=== PATIENT | female | born 1950 | race Caucasian/White ===

== ENCOUNTER → 2017-08-29 18:34 | Outpatient (CLI) | payer MEDICARE, OTHER, SELFPAY | PROVIDERS: Family Provider Family Medicine; PCP Family Medicine; Visit Provider Physician Assistant Surgical | DX: J02.9 Acute pharyngitis, unspecified (principal) | CPT/HCPCS: 87081 ==

== ENCOUNTER 2017-12-01 14:53 | Emergency (ER) | payer MEDICARE, OTHER, SELFPAY ==
[2017-12-01 14:54] VITALS: BP 164/82; PULSE 104; RESP 18; O2SAT 97; BMI 45.1
[2017-12-01 15:00] VITALS: BP 164/82; PULSE 102; RESP 16; O2SAT 96
--- NOTE | 2017-12-01 15:09 | EKG12_ITS ---
Test Reason : CP Blood Pressure : / mmHG Vent. Rate : 107 BPM Atrial Rate : 107 BPM P-R Int : 158 ms QRS Dur : 090 ms QT Int : 336 ms P-R-T Axes : 044 -12 037 degrees QTc Int : 448 ms Sinus tachycardia Otherwise normal ECG Confirmed by ASHISH WATSON, ASHLEY ([id number]), telegraph editor JUAN RAMON SOLIS ([id number] on 12/04/2017 2:45:00 PM Referred By: ISAIAS/CHARAN Confirmed By:ASHLEY HINOJOSA MD
--- NOTE | 2017-12-01 15:13 | RAD_ITS ---
STUDY: X-RAY CHEST REASON FOR EXAM: Female, 67 years old. Chest pain TECHNIQUE: Single AP portable view of the chest. COMPARISON: None. FINDINGS: The lungs are clear and expanded. There is no demonstrated pleural abnormality. Normal size heart. Normal mediastinum and cash. Normal visualized pulmonary arteries. Normal visualized aortic arch and descending thoracic aorta. There is a dextroscoliosis of the thoracic spine. There is degenerative osteoarthritis of the bilateral shoulders. There is no demonstrated abnormality of the visualized soft tissue structures of the upper abdomen. RAD/Chest 1 View (Portable) IMPRESSION: Degenerative changes, as described above. No demonstrated acute cardiopulmonary process. Electronically Signed: Braden Gallegos MD at 15:23 EDT Tel , Service support ,
[2017-12-01] MEDS: Aspirin 81 MG TAB.CHEW 324 MG PO (15:21)
--- NOTE | 2017-12-01 15:25 | ED.DCSUM_ITS ---
- ER Visit Summary Date of Service: 12/01/17 Chief Complaint: Chest pain History of Present Illness: The patient is a 67 F who presents with chest pain. She states it has been intermittent for the past week. She states it starts in the left side of her neck and radiates to the left side of her chest. It was dull and aching but now it sharp. It is worse with movement of the left arm. Denies nausea, vomiting or dyspnea. She states she had a stress test but it has been a while ago. She denies any diaphoresis. She does have multiple risk factors including hypertension, diabetes and high cholesterol. Physical Examination: Vital signs reviewed. HEENT exam unremarkable. Heart is regular rate and rhythm without murmurs. Lungs are clear to auscultation. She has tenderness of the left chest wall in the upper part. Abdomen is soft and nontender. Extremities reveal no edema. Peripheral pulses are equal. Skin exam normal. Neurologic exam normal. Test Results: EKG was sinus rhythm with a rate of 107. No ST changes. Chest x- ray feel degenerative changes. Laboratory studies reveal a white blood count of 11.3, hemoglobin 15.7. Glucose 216. Troponin normal. Emergency Department Course and Treatment: Patient was medicated with aspirin. Patient has reproducible pain in the left neck into the left chest. I feel that this is musculoskeletal. Patient does have a history of pleurisy states that this feels very similar. The patient is not short of breath. I have very low suspicion for pulmonary embolism. The patient takes tramadol at home only once a day. I told her to take NSAIDs and use heat and ice for this pain. She will follow-up with her primary care physician. Treatment Plan: [] Disposition: Discharge Impression: Chest wall pain This note was generated with [employer] software. It may contain incorrect words, spelling, and punctuation that were not noted in review of the chart prior to signing ED Disposition - Plan for ED Patient: Chief Complaint: Chest Pain Referrals: Alfredo Brooks [Primary Care Provider] -
[2017-12-01 15:27] LABS: Absolute Lymphocyte Count 2.59 X10^3/ul (0.83-4.51); Absolute Neutrophil Count 7.5 X10^3/uL (2.0-7.7); Basophil% 0.9 % (0-1); Eosinophil# 0.23 X10^3/uL; Hematocrit 44.3 % (37-47); Hemoglobin 15.7 g/dl (12.0-15.0); Lymphocyte # 2.59 X10^3/ul (4.0); Lymphocyte % 22.9 % (19-41); Mean Corp Hgb Conc 35.4 g/gl (32-36); Mean Corpuscular Hgb 35.4 pg (27.0-32.0); Mean Corpuscular Volume 99.8 fL (81-99); Mean Platelet Vol. 11.3 fl (6.2-12.0); Monocyte# 0.86 X10^3/uL; Monocyte% 7.6 % (0-10); Neutrophil # 7.49 X10^3/uL (2.7-7.7); Neutrophil % 66.2 % (47-70); POSITIVE COUNT NO; POSITIVE DIFFERENTIAL NO; POSITIVE MORPHOLOGY NO; Platelet Count 256 K/mm3 (150-450); RBC Distribution Width CV 12.1 % (11.6-14.6); Red Blood Count 4.44 M/mm3 (4.2-5.4); White Blood Count 11.3 K/mm3 (4.4-11.0)
[2017-12-01 15:36] LABS: Anion Gap 11 (5-15); BUN 18 mg/dL (7-18); Calcium,Total 9.4 mg/dL (8.5-10.1); Chloride 101 mmol/L (98-107); Creatinine, Serum 0.75 mg/dL (0.55-1.02); EST Glomerular Filtration Rate 82 mL/min (>60); Est Glom Filt Rate - Afr Amer 99 mL/min (>60); Estimated Creatinine Clearance 39.75 ml/min; Glucose 216 mg/dL (74-106); Potassium 4.1 mmol/L (3.5-5.1); Sodium Level 138 mmol/L (136-145)
--- NOTE | 2017-12-01 16:11 | ED.DEP ---
ED Disposition - Plan for ED Patient: Disposition: Home or Assisted Living Chief Complaint: Chest Pain Instructions: ED Chest Pain Pleurisy Referrals: Alfredo Brooks [Primary Care Provider] -
[2017-12-01 16:14] VITALS: BP 144/69; PULSE 97; RESP 18
[2017-12-01 16:18] VITALS: PULSE 97
== END 2017-12-01 16:20 | disposition home or self-care (01) ==
PROVIDERS: Emergency Provider Emergency Medicine; Family Provider Family Medicine; PCP Family Medicine
DX: R07.89 Other chest pain (principal); E11.9 Type 2 diabetes mellitus without complications; I10 Essential (primary) hypertension; E78.00 Pure hypercholesterolemia, unspecified; E03.9 Hypothyroidism, unspecified; Z79.82 Long term (current) use of aspirin; Z79.4 Long term (current) use of insulin; Z79.899 Other long term (current) drug therapy
CPT/HCPCS: 71045; 80048; 84484; 85025; 93005; 99285

== ENCOUNTER 2018-02-21 10:30 | Outpatient (RCR) | payer MEDICARE, OTHER, SELFPAY ==
--- NOTE | 2018-02-02 13:57 | HP.PTEVAL ---
Patient's Visit Information HERI TOUSSAINT is a 67 year old F referred to Physical Therapy by Marcelino Fitch with a diagnosis of Back pain and leg pain. Date of Evaluation: 02/02/18 Physical Therapist: Pebbles Ernst - Visit Plan Frequency: 2x /Week Duration: 6 Weeks Plan: 2X/ week for 4-6 weeks for centralization of symptoms using extension principle, core stability, LE strength, postural stength with HEP - Subjective Findings: Pt reports that her lower back has been bothering her and she has been having sharp pain in back of leg and sometimes back of the calf. This started about 6 months and it is getting a little better. She says bathtub and tries hip flexion exercises in the tub and helps. They did an MRI of back and they are going to do a block in the lower part of the back. The MRI showed that she has 2 bulging dics one in the lower and one in the upper. She can sit for 1/2 hour and then she has to move. She can not stand longer than 30 min and sitting relieves it and then she can get u up and go again. sit to stand able without using arms. Stairs are a little difficulty (hurts her back) and uses a railing. - Pain Back pain Pain Intensity (Out of 10): 7 R leg pain Pain Intensity (Out of 10): 5 - Objective Gait: walks with WBOS with shorter stride. Trunk AROM: Flexion 75%, ext 50%, SB B 75%,. LE MMT: hip flex B 4/5, knee ext B 4/5, knee flex R 4/5 and L 4-/5, hip abd R 4/5, hip and L 4-/5, Bridge 1/2 normal ROM. SLR + B for slight discomfort. Prone lying...increase center of back pain that went away after 1-2 min of lying there. CHARLI X 1 increase back pain, CHARLI X 10.... increased R sided back pain....laying prone X 1 min and pt had no back pain... CHARLI X 10 again and pt had no pain. SHowed pt how to sit with a towel roll behind back with good posture for home and she stated that it felt good. Patella DTR's 1+/3 B - Goals Goal 1:: I HEP Goal Time Frame: 4-6 Weeks Goal 2:: Sit with upright posture during treatment sessions Goal Time Frame: 4-6 Weeks Goal 3:: Decrease back and leg pain to 1/10 with ADL's Goal Time Frame: 4-6 Weeks Goal 4:: Increase LE strength to 4/5 B hip flex, abd, ext Goal Time Frame: 4-6 Weeks - Rehabilitation Potential Rehabilitation Potential: Good - Anticipated Interventions Patient/Client Instruction: Educate patient on: Plan of Care For the Purpose of:: To decrease pain, To decrease swelling/inflammation, To increase ROM, To improve nutrient delivery to tissue, To improve muscle performance and motor function, To improve ability to perform ADL's, To increase tolerance to activity/condition/position, To improve performance and independence with ADL's, To improve ability of physical actions for home/community/work/leisure, To improve gait and locomotor functions, To improve health of tissue Therapeutic Exercise to Include: Strength training, Postural training, Gait and locomotor training, Active ROM, Dynamic Lumbar Stabilization For the Purpose of:: To decrease pain, To increase ROM, To improve nutrient delivery to tissue, To improve muscle performance and motor function, To improve ability to perform ADL's, To increase tolerance to activity/condition/position, To improve performance and independence with ADL's, To improve health of tissue, To decrease soft tissue restriction, To increase flexibility/ROM Manual Therapy Techniques to Include: Mobilization, Soft tissue mobilization For the Purpose of:: To improve nutrient delivery to tissue, To improve muscle performance and motor function IF ES: Yes Cryotherapy (ice pack, ice massage): Yes Thermo therapy (hot pack): Yes For the Purpose of:: To decrease pain Thank you for the opportunity to evaluate your patient. For Medicare and Medicare HMO plans, please review the plan of care and approve it. It will need to be FAXED BACK to us at [phone] for Medicare purposes. For Medicare only, by signing this I certify the plan of care. Please let me know if there are questions or concerns regarding this plan of care. Physician Signature: Date:
--- NOTE | 2018-06-04 09:45 | HP.PTDCSUM ---
HP - PT D/C Summary It has been my pleasure to treat HERI TOUSSAINT under orders from Marcelino Fitch MD, for the diagnosis of Back pain and leg pain for a total of 5 visit(s). Discharge Date: 06/04/18 Please see the following information for a summary of their discharge status. - Subjective Subjective: Pt reports that she is a lot better. TOday is her last day of PT - Pain Back pain Pain Intensity (Out of 10): 0 R leg pain Pain Intensity (Out of 10): 0 - Objective Objective/Function: Pt had good understanding of HEP added today - Goals Goal 1:: I HEP Goal 2:: Sit with upright posture during treatment sessions Goal 3:: Decrease back and leg pain to 1/10 with ADL's Goal 4:: Increase LE strength to 4/5 B hip flex, abd, ext - Plan Plan: Pt will cont with HEP. DC PT - D/C Information Discharge Comments: DC to HEP If there are questions or concerns regarding this patient's physical therapy, please feel free to call me at [phone]. Thank you for the referral of this patient. Sincerely, Pebbles Ernst, MPT
== END 2018-02-21 19:00 | disposition home or self-care (01) ==
LOC: PT 10:30
PROVIDERS: Family Provider Family Medicine; PCP Family Medicine; Referring Provider Anesthesiology Pain Medicine; Visit Provider Anesthesiology Pain Medicine
DX: M54.9 Dorsalgia, unspecified (principal); M79.604 Pain in right leg
CPT/HCPCS: 97110; 97161

== ENCOUNTER 2018-04-25 12:48 | Emergency (ER) | payer MEDICARE, SELFPAY ==
[2018-04-25 12:48] VITALS: BP 159/82; PULSE 111; RESP 18; TEMP 36.3; O2SAT 94; BMI 45.1
--- NOTE | 2018-04-25 13:09 | CT_ITS ---
STUDY: CT ABDOMEN AND PELVIS WITH CONTRAST REASON FOR EXAM: Female, 68 years old. Diffuse abdominal pain. RADIATION DOSAGE (If Supplied By Facility): CTDIvol = ( 23.87 ) mGy, DLP = ( 1711.73 ) mGycm TECHNIQUE: Transaxial images were obtained from the dome of the diaphragm to the symphysis pubis without oral contrast. Isovue 300 100 IV was administered. Sagittal and coronal images were reconstructed. Individualized dose optimization techniques were used for this CT. COMPARISON: Comparison is made with prior study dated June 19, 2014. FINDINGS: The visualized lung bases are unremarkable. Coronary artery calcification. There is decreased attenuation of the liver consistent with steatosis. Mild hepatomegaly. There are surgical clips in the gallbladder fossa consistent with a prior cholecystectomy. Normal spleen. Calcification of the splenic artery. Normal pancreas. Normal bilateral adrenal glands. Normal right kidney. Normal left kidney. Normal visualized stomach. Normal small intestine. There are multiple colonic diverticula consistent with diverticulosis. There is non-visualization of the appendix. There is scattered atherosclerotic calcification of the abdominal aorta, without a demonstrated aneurysm. Normal inferior vena cava. Normal retroperitoneum. Normal urinary bladder. There is absence of the uterus consistent with a prior hysterectomy. Normal abdominal wall. There are diffuse degenerative changes of the visualized lumbar spine. CT/Abdomen/Pelvis W IV Cont ONLY IMPRESSION: Mild splenomegaly with diffuse fatty infiltration of the liver. Electronically Signed: Meño Mosley, at 15:32 EST , Service support ,
[2018-04-25] MEDS: 0.9% Normal Saline 1,000 ML 1000 ML IV (13:44)
[2018-04-25] MEDS: fentaNYL 100 MCG/2 ML Ampul 50 MCG IV (13:44)
[2018-04-25] MEDS: Ondansetron 4 MG/2 ML Vial IV (13:44)
[2018-04-25 14:18] LABS: Absolute Lymphocyte Count 2.35 X10^3/ul (0.83-4.51); Absolute Neutrophil Count 6.1 X10^3/uL (2.0-7.7); Basophil# 0.05 X10^3/uL; Basophil% 0.5 % (0-1); Eosinophils% 2.1 % (0-5); Hematocrit 46.5 % (37-47); Hemoglobin 15.4 g/dl (12.0-15.0); Lymphocyte # 2.35 X10^3/ul (4.0); Mean Corp Hgb Conc 33.1 g/gl (32-36); Mean Corpuscular Hgb 34.3 pg (27.0-32.0); Mean Corpuscular Volume 103.6 fL (81-99); Mean Platelet Vol. 11.7 fl (6.2-12.0); Monocyte# 0.69 X10^3/uL; Monocyte% 7.3 % (0-10); Neutrophil # 6.08 X10^3/uL (2.7-7.7); Neutrophil % 64.7 % (47-70); Platelet Count 254 K/mm3 (150-450); RBC Distribution Width CV 12.7 % (11.6-14.6); RBC Distribution Width SD 47.9 fl (35.1-43.9); Red Blood Count 4.49 M/mm3 (4.2-5.4); White Blood Count 9.4 K/mm3 (4.4-11.0)
[2018-04-25 14:19] LABS: POSITIVE COUNT NO; POSITIVE DIFFERENTIAL NO; POSITIVE MORPHOLOGY NO
[2018-04-25 14:32] LABS: Albumin, Serum 3.7 g/dL (3.2-5.0); BUN 19 mg/dL (7-18); Creatinine, Serum 0.79 mg/dL (0.55-1.02); EST Glomerular Filtration Rate 77 mL/min (>60); Est Glom Filt Rate - Afr Amer 93 mL/min (>60); Estimated Creatinine Clearance 39.21 ml/min; Glucose 205 mg/dL (74-106); Protein, Total 7.2 g/dL (6.4-8.2)
[2018-04-25 14:33] LABS: ALB/GLOB Ratio 1.1 RATIO (0.9-2.4); AST(SGOT) 28 U/L (15-37); Alanine Aminotransfer ALT/SGPT 33 U/L (13-56); Alkaline Phosphatase 70 U/L (45-117); Anion Gap 9 (5-15); Calcium,Total 9.3 mg/dL (8.5-10.1); Chloride 108 mmol/L (98-107); Globulin 3.5 g/dL (2.2-4.2); Lipase 197 U/L (73-393); Potassium 4.1 mmol/L (3.5-5.1); Sodium Level 140 mmol/L (136-145)
[2018-04-25 14:45] LABS: Bacteria 0 SEEN /hpf (None Seen); Mucous, Urine 0 SEEN /hpf (<or=2+); Red Blood Cells-Urine 0 SEEN /hpf (0-5)
[2018-04-25 14:47] LABS: Color, Urine Yellow (Yellow); Glucose, Dipstick 1000 mg/dl (Normal); Ketone-Dipstick 5 mg/dl (Negative); Leukocyte Esterase-Dipstick 100 /ul (Negative); Nitrite-Dipstick Negative (Negative); Occult Blood-Urine Negative /ul (Negative); Protein-Dipstick 15 mg/dl (Negative); Urine Bilirubin Dipstick Negative (Negative); Urine Clarity Clear (Clear); Urine Urobilinogen Normal (Normal)
[2018-04-25 14:53] LABS: Squamous Epithelial Cells - UA 0-5 SEEN /hpf (5-10); White Blood Cells 0-5 SEEN /hpf (0-5)
[2018-04-25 15:20] VITALS: BP 133/58; PULSE 94; RESP 16; O2SAT 92
--- NOTE | 2018-04-25 15:53 | ED.VISSUMM ---
- ER Visit Summary Date of Service: 04/25/18 Chief Complaint: Abdominal pain History of Present Illness: The patient is a 68 F with left-sided flank pain for 3 days. The pain feels like a stabbing pain and does not radiate. It is located at her left flank and left back. She does have increased frequency of stools but denies any bleeding. Denies any constipation. She does have nausea but no vomiting. She has a history of diverticulitis. Denies any history of kidney disease or stones. Denies any urinary symptoms. Physical Examination: Afebrile and vital signs unremarkable except for heart rate of 111. The patient is nontoxic and in no acute distress. Moist mucous membranes. No jaundice heart tachycardic but regular. Lungs clear. Abdomen is tender over the left flank. No guarding or rebound. Mild left CVA tenderness. Test Results: Hemoglobin 15.4, glucose 205. Hepatic panel and lipase normal. Urinalysis shows no evidence of bleeding or infection. CT abdomen showed mild splenomegaly and a fatty liver Emergency Department Course and Treatment: Patient received fluids, Zofran, and fentanyl while awaiting results. Her workup was reassuring. I do not know what is causing her pain. There is no sign of infection, GI pathology, or G U pathology. Patient will be treated with a course of tramadol. Zofran as needed. Follow-up with primary care for recheck. Return right away for any new or worsening issues. Treatment Plan: As above Disposition: Discharge Impression: 1. Left flank pain This note was generated with [employer] dictation software. It may contain incorrect words, spelling, and punctuation that were not noted in review of the chart prior to signing ED Disposition - Plan for ED Patient: Referrals: Alfredo Brooks [Primary Care Provider] -
--- NOTE | 2018-04-25 15:55 | ED.DEP ---
ED Disposition - Plan for ED Patient: Instructions: ED Flank Pain Uncertain Cause Prescriptions: traMADol [Ultram] 50 mg PO Q6H PRN PRN 3 Days #12 tab PRN Reason: Pain Ondansetron [Zofran Odt] 4 mg PO Q8H PRN PRN #10 tab PRN Reason: Nausea Referrals: Alfredo Brooks [Primary Care Provider] -
[2018-04-25 16:08] VITALS: BP 143/49; PULSE 73; RESP 15; O2SAT 96
== END 2018-04-25 16:09 | disposition home or self-care (01) ==
LOC: ED 13:36
PROVIDERS: Emergency Provider Emergency Medicine; Family Provider Family Medicine; PCP Family Medicine
DX: R10.9 Unspecified abdominal pain (principal); R11.0 Nausea; R19.7 Diarrhea, unspecified; R16.1 Splenomegaly, not elsewhere classified; K76.0 Fatty (change of) liver, not elsewhere classified
CPT/HCPCS: 74177; 80053; 81001; 83690; 85025; 96361; 96374; 96375; 99283; J7030; Q9967; A4216; J2405

== ENCOUNTER 2018-07-20 07:51 | Emergency (ER) | payer MEDICARE, SELFPAY ==
[2018-07-20 07:53] VITALS: BP 162/79; PULSE 119; RESP 20; TEMP 36.4; O2SAT 98; BMI 45.9
--- NOTE | 2018-07-20 08:10 | ED.DCSUM_ITS ---
- ER Visit Summary Date of Service: 07/20/18 Chief Complaint: Epistaxis History of Present Illness: The patient is a 68 F who presents with epistaxis that began yesterday. Patient was able to stop the bleeding last night. Patient states today she woke up and the bleeding was worse and she is unable to control her bleeding. Patient states she had 2 other episodes earlier this week which stopped. Patient denies any trauma or injury. Patient admits to some nausea but denies any vomiting. Patient is not on any anticoagulants. Physical Examination: Vital signs are stable except for an elevated blood pressure 162/79 and a tachycardia of 119. Patient is afebrile. Patient is in no acute distress. Oral mucosa is pink and moist. There is blood noted in the oropharynx. Nasal mucosa shows bleeding in bilateral nares. Heart was regular and tachycardic. Lungs are clear and equal bilaterally. Test Results: CBC shows slight leukocytosis of 11.4. Hemoglobin and hematocrit are normal. PT with INR and PTT were within normal limits. Emergency Department Course and Treatment: Cottonball soaked with Afrin and lidocaine were placed in bilateral nares. There is minimal improvement of the bleeding after this. Bilateral 7.5 cm anterior/posterior Rapid Rhino balloons were placed. Bleeding is improving after this. Patient still had some bleeding around the nasal packing. Packing was removed. Patient blew her nose and was able to blow out some clots from the left nares. Bilateral 7.5 cm anterior/posterior rapid Rhino balloons were replaced. Patient states that the bleeding is improving but there is still some oozing. Patient felt like her blood pressure was dropping. BGT was obtained and was 333. Patient was given 15 units of Humalog. An episode that balloon was applied to the left nares. Jonnie philip was still having some oozing from the right nares. Patient was unable to tolerate any further packing in the right nares. Since there is no ENT on-call here today, patient will be transferred for ENT evaluation. Patient requested to go to [facility]. Patient will be transferred to the emergency department there. Patient and family understood and were agreeable with the plan. All questions were answered. Disposition: Transfer to [facility] Impression: 1. Epistaxis This note was generated with [employer] dictation software. It may contain incorrect words, spelling, and punctuation that were not noted in review of the chart prior to signing ED Disposition - Plan for ED Patient: Disposition: [facility] Diagnosis: Epistaxis Instructions: Nosebleed Referrals: Alfredo Brooks [Primary Care Provider] -
[2018-07-20 08:51] LABS: Absolute Lymphocyte Count 2.04 X10^3/ul (0.83-4.51); Absolute Neutrophil Count 8.4 X10^3/uL (2.0-7.7); Basophil# 0.06 X10^3/uL; Basophil% 0.5 % (0-1); Eosinophil# 0.18 X10^3/uL; Eosinophils% 1.6 % (0-5); Hematocrit 43.7 % (37-47); Hemoglobin 14.9 g/dl (12.0-15.0); Lymphocyte # 2.04 X10^3/ul (4.0); Mean Corp Hgb Conc 34.1 g/gl (32-36); Mean Corpuscular Hgb 34.4 pg (27.0-32.0); Mean Corpuscular Volume 100.9 fL (81-99); Mean Platelet Vol. 11.6 fl (6.2-12.0); Monocyte# 0.64 X10^3/uL; Monocyte% 5.6 % (0-10); Neutrophil # 8.38 X10^3/uL (2.7-7.7); Neutrophil % 73.9 % (47-70); Platelet Count 245 K/mm3 (150-450); RBC Distribution Width CV 13.3 % (11.6-14.6); RBC Distribution Width SD 48.8 fl (35.1-43.9); Red Blood Count 4.33 M/mm3 (4.2-5.4); White Blood Count 11.4 K/mm3 (4.4-11.0)
[2018-07-20 08:52] LABS: POSITIVE COUNT NO; POSITIVE DIFFERENTIAL NO; POSITIVE MORPHOLOGY NO
[2018-07-20 09:02] LABS: International Normalized Ratio 1.1; Partial Thromboplast Time 29.6 Seconds (24.1-36.2); Prothrombin Time (Protime)PT. 14.1 SECONDS (11.7-14.9)
[2018-07-20] MEDS: Lidocaine 4% 50 ML Bottle TOPICAL (09:20)
[2018-07-20] MEDS: Oxymetazoline 0.05% 1 SPRAY SPRAY.BTL NASAL (09:21)
[2018-07-20 11:27] VITALS: BP 149/68; PULSE 117; RESP 18; O2SAT 93
[2018-07-20 11:40] LABS: Bedside Glucose 330 mg/dL (70-110)
[2018-07-20] MEDS: Insulin Lispro 100 UNIT/ML INSULN.PEN 15 UNIT SC (12:36)
[2018-07-20 13:45] VITALS: BP 143/63; PULSE 120; RESP 18; O2SAT 92
[2018-07-20 14:00] LABS: Bedside Glucose 300 mg/dL (70-110)
[2018-07-20 14:30] VITALS: PULSE 120; RESP 18
== END 2018-07-20 14:31 | disposition short-term general hospital (02) ==
PROVIDERS: Emergency Provider Emergency Medicine; Family Provider Family Medicine; PCP Family Medicine
DX: R04.0 Epistaxis (principal); J02.9 Acute pharyngitis, unspecified; R51 Headache; R11.0 Nausea; E11.9 Type 2 diabetes mellitus without complications; Z79.4 Long term (current) use of insulin; Z79.84 Long term (current) use of oral hypoglycemic drugs; Z79.82 Long term (current) use of aspirin; Z79.899 Other long term (current) drug therapy
CPT/HCPCS: 30903; 30905; 82962; 85025; 85610; 85730; 96372; 99285; A4216

== ENCOUNTER → 2019-02-12 15:01 | Outpatient (CLI) | payer MEDICARE, SELFPAY ==
[2019-02-12 17:53] LABS: CRP 3.19 mg/L (0.0-3.0)
[2019-02-14 16:07] LABS: Endomysial Antibody IgA Negative (Negative)
[2019-02-15 16:40] LABS: Immunoglobulin A 307 mg/dL (87-352); t-Transglutaminase IgA <2 U/mL (0-3)
== END ==
PROVIDERS: Family Provider Family Medicine; PCP Family Medicine; Referring Provider Internal Medicine Gastroenterology; Visit Provider Internal Medicine Gastroenterology
DX: R19.7 Diarrhea, unspecified (principal)
CPT/HCPCS: 36415; 82784; 83516; 86140; 86255

== ENCOUNTER 2021-07-01 18:03 | Emergency (ER) | payer MEDICARE, SELFPAY ==
[2021-07-01 18:04] VITALS: BP 176/78; PULSE 96; RESP 15; TEMP 36.2; O2SAT 96; BMI 47.5
[2021-07-01 18:06] VITALS: BP 176/78; PULSE 96; RESP 15; TEMP 36.2; O2SAT 96
[2021-07-01 19:17] VITALS: BP 162/77; PULSE 89; RESP 18; O2SAT 98
--- NOTE | 2021-07-01 19:55 | EKG12_ITS ---
Test Reason : CP Blood Pressure : / mmHG Vent. Rate : 087 BPM Atrial Rate : 087 BPM P-R Int : 158 ms QRS Dur : 092 ms QT Int : 374 ms P-R-T Axes : 036 -16 050 degrees QTc Int : 450 ms Normal sinus rhythm Nonspecific T wave abnormality Abnormal ECG Confirmed by ASHISH WATSON, SAHLEY ([id number]), supervising film or videotape editor PATRICE JARVIS ([id number]) on 07/05/2021 1:36:50 PM Referred By: Confirmed By:ASHLEY HINOJOSA MD
--- NOTE | 2021-07-01 19:56 | EDS_ITS ---
HPI History of Present Illness Chief Complaint: Chest Pain Informant: patient Narrative Narrative: [id number] female presenting to the emergency room for evaluation of chest pain. Patient states that she was out holding in the garden yesterday when she got a sudden sharp pain in the center of her chest that radiated to her left shoulder. She stopped which she is doing and went and sat down with her . Never really went away and today it feels more of the ache in the center of her chest. She states that when she gets up and moves it makes it worse. She notes a history of diabetes and hypertension and hypercholesterolemia. She denies any known heart disease [facility] Medical History Chest pain Diabetes Hypertension Home Medications amlodipine 10 mg PO DAILY 04/21/16 [History Last Taken Unknown] hydrochlorothiazide 12.5 mg PO DAILY 04/21/16 [History Last Taken Unknown] levothyroxine 112 mcg PO DAILY 04/21/16 [History Last Taken Unknown] lisinopril 10 mg PO DAILY 04/21/16 [History Last Taken Unknown] metformin 1,000 mg PO BIDCM 04/21/16 [History Last Taken Unknown] omega-3 fatty acids-fish oil 1 ea PO DAILY 04/21/16 [History Last Taken Unknown] simvastatin 10 mg PO QHS 04/21/16 [History Last Taken Unknown] aspirin 81 mg tablet,delayed release 81 mg PO QDAY 08/29/17 [History Last Taken Unknown] ondansetron 4 mg PO Q8H PRN PRN #10 tab 04/25/18 [Rx Last Taken Unknown] ergocalciferol (vitamin D2) [Vitamin D] 5,000 iu PO DAILY 07/20/18 [History Last Taken Unknown] gabapentin 100 mg PO TIDCM 07/20/18 [History Last Taken Unknown] insulin glargine U-300 conc [Nata Brown] 72 unit SQ DAILY 07/20/18 [History Last Taken Unknown] insulin regular human [Novolin R] 26 unit SUBCUT BID 07/20/18 [History Last Taken Unknown] insulin regular human [Novolin R] 28 unit SUBCUT DINNER 07/20/18 [History Last Taken Unknown] loratadine [Claritin] 10 mg PO DAILY 07/20/18 [History Last Taken Unknown] Allergy/AdvReac Type Severity Reaction Status Date / Time amoxicillin trihydrate Allergy Rash Verified 07/01/21 18:06 [From Augmentin] codeine Allergy Rash Verified 07/01/21 18:06 Penicillins Allergy Rash Verified 07/01/21 18:06 potassium clavulanate Allergy Rash Verified 07/01/21 18:06 [From Augmentin] Sulfa (Sulfonamide Allergy Rash Verified 07/01/21 18:06 Antibiotics) Family History (Updated 08/29/17 @ 12:27 by Nayeli Painter) Other Cancer Diabetes Surgical History Hx of cholecystectomy Hx of hysterectomy Hx of thyroidectomy Social History (Updated 07/01/21 @ 19:[address] Sim Iverson DO) current gender identity: female Smoking Status: Never smoker ROS ROS ED Constitutional Constitutional ED: Denies chills, fever(s) or weight loss Eyes Eyes: Denies change in vision or diplopia ENT ENT ED: Denies ear pain, rhinorrhea or sore throat Cardiovascular Cardiovascular: Reports chest pain; Denies orthopnea, palpitations or racing heartbeat Respiratory/Chest Respiratory/Chest: Denies cough, dyspnea or orthopnea Gastrointestinal Gastrointestinal: Denies abdominal pain, diarrhea, nausea or vomiting Genitourinary Genitourinary ED: Denies dysuria, hematuria or urinary frequency Musculoskeletal Musculoskeletal: Denies arthralgias or myalgias Integumentary Denies abscess or rash Neurologic Neurologic: Denies headache(s) or weakness Psychiatric Psychiatric: Denies anxiety, depression, suicidal ideation or suicidal thoughts Endocrine Endocrinology: Denies polydipsia, polyphagia or polyuria Allergic/Immunologic Allergic/Immunologic ED: Denies mouth swelling, tongue swelling or urticaria EXAM Physical Exam Const Vital Signs: 07/01/21 18:04 07/01/21 18:06 07/01/21 19:04 Temperature 97.2 F L 97.2 F L Temperature Source Temporal Temporal Pulse Rate 96 96 Respiratory Rate 15 15 Respiratory Effort Normal Non-Labored Blood Pressure 176/78 H 176/78 H Blood Pressure Mean 110 110 Pulse Ox 96 96 Oxygen Delivery Method Room Air Room Air 07/01/21 19:17 07/01/21 20:38 07/01/21 20:44 Temperature Temperature Source Pulse Rate 89 89 86 Respiratory Rate 18 27 H 24 H Respiratory Effort Blood Pressure 162/77 H 153/68 H 153/68 H Blood Pressure Mean 105 153/68 96 Pulse Ox 98 95 94 Oxygen Delivery Method Room Air Room Air Room Air Positive well nourished, well developed and obese General Appearance ED: well developed Nutritional Appearance: obese HEENT Reports normocephalic, head/scalp atraumatic and moist mucous membranes; Denies TM's clear normocephalic and atraumatic Tympanic Membrane ED: Negative for TM's clear Eyes PERRL and EOMs intact bilaterally Neck no lymphadenopathy, supple and no JVD Chest Wall Chest: tenderness costal cartilage Resp normal respiratory effort and clear to auscultation bilaterally Cardio regular rate, regular rhythm and no murmurs GI normal to inspection, nondistended, normoactive bowel sounds and non-tender Palpation: soft Back/Spine no CVA tenderness and normal ROM Extremity normal to inspection General Extremety ED: Negative for edema General Extremity: Negative for edema Neuro oriented x3 and CN's II-XII intact bilaterally Sensorium / Orientation: alert Motor Exam: strength 5/5 throughout Psych mental status grossly normal Mood & Affect: Negative for depressed or tearful Skin no rashes or lesions noted and no wounds MDM MDM MDM Narrative Medical decision making narrative: CBC showed a white count 7.9 with a hemoglobin 14.7. Troponin is 8 and represents greater than 8 hours of constant symptoms. BMP is otherwise demonstrating a glucose of 239. My interpretation of the chest x-ray is no acute process. She is had no events on the monitor. At this point I do not think that the patient symptoms are consistent with ACS. I do not believe that she has a DVT or PE. Her pain is reproducible. Lab Data Attestation: I reviewed the patient's lab results. Labs: Laboratory Results - last 24 hr 07/01/21 07/01/21 19:00 19:00 WBC 7.9 RBC 4.13 L Hgb 14.7 Hct 42.8 MCV 103.6 H MCH 35.6 H MCHC 34.3 RDW Std Deviation 46.5 H RDW Coeff of Joyce 12.3 Plt Count 233 MPV 12.1 H Immature Gran % (Auto) 0.500 Neut % (Auto) 59.6 Lymph % (Auto) 28.0 Harvey % (Auto) 9.0 Eos % (Auto) 2.0 Baso % (Auto) 0.9 Absolute Neuts (auto) 4.7 Absolute Lymphs (auto) 2.22 Nucleated RBC % 0 Sodium 138 Potassium 4.3 Chloride 105 Carbon Dioxide 25.0 Anion Gap 8 BUN 16 Creatinine 0.79 Estim Creat Clear Calc 37.60 Est GFR (MDRD) Af Amer 93 Est GFR (MDRD) Non-Af 77 BUN/Creatinine Ratio 20.3 H Glucose 239 H Calcium 9.7 Troponin I High Sens 8 EKG Initial EKG: Attestation: I personally reviewed and interpreted this EKG as follows: Comments: Normal sinus rhythm with a ventricular rate of 87 bpm. Discharge Plan Triage Chief Complaint: Chest Pain ED Provider: Sim Iverson Dx/Rx/DC Orders Prescriptions: No Action aspirin [Adult Low Dose Aspirin] 81 mg tablet,delayed release (DR/EC) 81 mg PO QDAY RF: 0 simvastatin 10 MG tablet 10 mg PO QHS RF: 0 levothyroxine 100 MCG tablet 112 mcg PO DAILY RF: 0 amlodipine 10 MG tablet 10 mg PO DAILY RF: 0 metformin 1,000 MG tablet 1,000 mg PO BIDCM RF: 0 lisinopril 10 MG tablet 10 mg PO DAILY RF: 0 hydrochlorothiazide 25 MG tablet 12.5 mg PO DAILY RF: 0 omega-3 fatty acids-fish oil 1 EACH capsule 1 ea PO DAILY RF: 0 ondansetron 4 MG tablet 4 mg PO Q8H PRN PRN (Reason: Nausea) Qty: 10 RF: 0 gabapentin 100 MG capsule 100 mg PO TIDCM RF: 0 ergocalciferol (vitamin D2) [Vitamin D2] 50,000 UNIT capsule 5,000 iu PO DAILY RF: 0 loratadine [Allergy Relief (loratadine)] 10 MG tablet 10 mg PO DAILY RF: 0 insulin regular human [Novolin R Regular U-100 Insuln] 100 UNIT/ML Ml 26 unit subcut BID RF: 0 insulin regular human [Novolin R Regular U-100 Insuln] 100 UNIT/ML Ml 28 unit subcut DINNER RF: 0 insulin glargine U-300 conc [Toujeo SoloStar U-300 Insulin] 300 UNIT/ML Insuln.Pen 72 unit SQ DAILY RF: 0 Primary Care Provider: Alfredo Brooks
[2021-07-01 20:14] LABS: Absolute Lymphocyte Count 2.22 X10^3/uL (0.83-4.51); Absolute Neutrophil Count 4.7 X10^3/uL (2.0-7.7); Basophil# 0.07 X10^3/uL; Basophil% 0.9 % (0-1); Eosinophil# 0.16 X10^3/uL; Hematocrit 42.8 % (37-47); Hemoglobin 14.7 g/dL (12.0-15.0); Lymphocyte # 2.22 X10^3/ul (0.83-4.51); Mean Corp Hgb Conc 34.3 g/dL (32-36); Mean Corpuscular Hgb 35.6 pg (27.0-32.0); Mean Corpuscular Volume 103.6 fL (81-99); Mean Platelet Vol. 12.1 fl (6.2-12.0); Monocyte# 0.71 X10^3/uL; NRBC Flagged by Analyzer 0 % (0-5); Neutrophil # 4.72 X10^3/uL (2.7-7.7); Neutrophil % 59.6 % (47-70); Platelet Count 233 K/mm3 (150-450); RBC Distribution Width CV 12.3 % (11.6-14.6); RBC Distribution Width SD 46.5 fl (35.1-43.9); Red Blood Count 4.13 M/mm3 (4.2-5.4); White Blood Count 7.9 K/mm3 (4.4-11.0)
--- NOTE | 2021-07-01 20:21 | RAD_ITS ---
STUDY: XR Chest 1 View 07/01/2021 8:19 PM REASON FOR EXAM: Female, 71 years old. chest pain COMPARISON: 12/01/2017 TECHNIQUE: XR Chest 1 View FINDINGS: There is no demonstrated pleural abnormality. Normal heart size. Normal mediastinum. Normal cash. Prominent appearing increased interstitial lung markings. Normal visualized pulmonary arteries. There is atherosclerotic calcification of the aortic arch with tortuosity. There are diffuse degenerative changes of the visualized thoracic spine. There is degenerative osteoarthritis of the bilateral shoulders. There is no demonstrated abnormality of the visualized soft tissue structures of the upper abdomen. RAD/Chest 1 View (Portable) IMPRESSION: There are no acute findings. Electronically Signed: Jarad Adair MD at 20:38 EDT ,
[2021-07-01 20:37] LABS: Anion Gap 8 (5-15); BUN 16 mg/dL (7-18); BUN/Creat Ratio 20.3 RATIO (10-20); Calcium,Total 9.7 mg/dL (8.5-10.1); Chloride 105 mmol/L (98-107); Creatinine, Serum 0.79 mg/dL (0.55-1.02); EST Glomerular Filtration Rate 77 mL/min (>60); Est Glom Filt Rate - Afr Amer 93 mL/min (>60); Glucose 239 mg/dL (74-106); Potassium 4.3 mmol/L (3.5-5.1); Sodium Level 138 mmol/L (136-145); Troponin-I HS (w/2H Reflex) 8 pg/mL (3.0-54.0)
[2021-07-01 20:38] VITALS: BP 153/68; PULSE 89; RESP 27; O2SAT 95
[2021-07-01] MEDS: Aspirin 81 MG TAB.CHEW 324 MG PO (20:41)
[2021-07-01 20:44] VITALS: BP 153/68; PULSE 86; RESP 24; O2SAT 94
[2021-07-01 21:46] VITALS: BP 156/74; PULSE 86; RESP 16; O2SAT 96
[2021-07-01 22:12] LABS: Reflex Troponin-HS? (from REC) Y
== END 2021-07-01 21:47 | disposition home or self-care (01) ==
PROVIDERS: Emergency Provider Emergency Medicine; PCP Family Medicine; Visit Provider Emergency Medicine
DX: R07.9 Chest pain, unspecified (principal); Z68.42 Body mass index [BMI] 45.0-49.9, adult; E11.9 Type 2 diabetes mellitus without complications; Z79.4 Long term (current) use of insulin; I10 Essential (primary) hypertension; E78.00 Pure hypercholesterolemia, unspecified; Z79.82 Long term (current) use of aspirin; Z79.899 Other long term (current) drug therapy; E66.9 Obesity, unspecified
CPT/HCPCS: 71045; 80048; 84484; 85025; 93005; 99283; A4216

== ENCOUNTER → 2021-07-28 | Outpatient (CLI) | payer MEDICARE, OTHER, SELFPAY ==
--- NOTE | 2021-07-28 11:47 | STRESSREP_ITS ---
Stress Test Report Pharmacologic myocardial perfusion stress test. 71-year-old lady with a history of chest pain. Stress protocol: Resting KG demonstrates normal sinus rhythm with a rate of 85 bpm normal intervals are noted resting blood pressure is 160/72 mmHg. 0.4 mg of regadenoson was infused per usual protocol followed by rapid intravenous saline flush injection continuous EKG monitoring was performed. The patient maintained sinus rhythm throughout the recording. The maximum heart rate was 98 bpm which was 65% of max impacted heart rate the maximum workload was 1 metabolic equivalent. At rest there were no ST or T wave changes noted to suggest abnormal flow reserve and at peak infusion nonspecific ST changes were noted with did not meet the criteria for ischemia. Myocardial perfusion protocol. 14.9 mCi of technetium 99m sestamibi was injected at rest. 0.4 mg of regadenoson was infused per usual protocol. At peak infusion 44.9 mCi of radha hnetium 99m sestamibi was injected stress images were obtained stress and rest images were reconstructed and compared in the short axis vertical long and horizontal long axis. Gated images were also obtained. Perfusion SPECT analysis: Review of the stress images demonstrate normal uptake of tracer noted in all areas of the myocardium. The resting images similar demonstrate normal uptake of tracer noted in all areas of the myocardium. No areas of reversibility are noted suggest ischemia. Gated SPECT analysis: Gated ejection fraction is 59% . Conclusion: Normal pharmacologic myocardial perfusion stress test. Preserved ejection fraction
== END | disposition home or self-care (01) ==
LOC: CVS 06:16
PROVIDERS: PCP Family Medicine; Visit Provider Family Medicine
DX: R06.00 Dyspnea, unspecified (principal)
CPT/HCPCS: 78452; 93017; A9500; A4216; J2785

== ENCOUNTER 2023-05-02 11:11 | Emergency (ER) | payer MEDICARE, OTHER, SELFPAY ==
[2023-05-02 11:12] VITALS: BP 124/58; PULSE 88; RESP 16; TEMP 36.6; O2SAT 95; BMI 41.1
[2023-05-02 11:42] LABS: Mucous, Urine 0 SEEN /hpf (<or=2+); Red Blood Cells-Urine 0 SEEN /hpf (0-5); White Blood Cells 0 SEEN /hpf (0-5)
[2023-05-02 11:48] LABS: Color, Urine Yellow (Yellow); Glucose, Dipstick Normal (Normal); Ketone-Dipstick Negative (Negative); Leukocyte Esterase-Dipstick Negative /ul (Negative); Nitrite-Dipstick Negative (Negative); Occult Blood-Urine Negative /ul (Negative); Protein-Dipstick Negative (Negative); Urine Bilirubin Dipstick Negative (Negative); Urine Clarity Sl. Cloudy (Clear); Urine Urobilinogen Normal (Normal)
[2023-05-02 11:55] LABS: Bacteria 3+ /hpf (None Seen); Squamous Epithelial Cells - UA 25-50 SEEN /hpf (5-10)
--- NOTE | 2023-05-02 12:10 | CT_ITS ---
EXAM: CT ABDOMEN AND PELVIS WITHOUT INTRAVENOUS CONTRAST CLINICAL INDICATION: right flank pain TECHNIQUE: Helically acquired images were obtained of the abdomen and pelvis without intravenous contrast. This CT exam was performed using one or more of the following dose reduction techniques: automated exposure control, adjustment of the mA and/or kV according to patient size, and/or use of iterative reconstruction technique. RADIATION DOSE: CTDIvol = 20.28 mGy, DLP = 1023.51 mGy-cm COMPARISON: CT abdomen and pelvis with IV contrast 04/25/2018. FINDINGS: LOWER THORAX: Unremarkable. Lung bases are clear. No cardiomegaly. No significant pericardial effusion. ABDOMEN: LIVER: Heterogeneous low attenuations in segment 4, segment 5, segment 8, segment 7 and segment 6 of the liver parenchyma are new findings. There is mild nodularity of the liver surface. GALLBLADDER AND BILE DUCTS: Postsurgical absence of the gallbladder. No intra- or extrahepatic biliary ductal dilation. PANCREAS: Unremarkable. No focal cystic mass. SPLEEN: Unremarkable. Normal size without focal cystic or solid mass. ADRENALS: Unremarkable. No nodules. KIDNEYS AND URETERS: 4 mm nonobstructing stone in the right upper renal infundibulum. No right hydronephrosis. 10 mm linear nonobstructing stone in the left lower renal infundibula. No left hydronephrosis. STOMACH AND BOWEL: Few diverticula in the sigmoid colon without diverticulitis. No stomach or bowel distention. PELVIS: APPENDIX: The appendix is not visualized but there are no secondary signs of acute appendicitis. BLADDER: Unremarkable. REPRODUCTIVE: Unremarkable as visualized. No mass. ABDOMEN and PELVIS: INTRAPERITONEAL SPACE: Unremarkable. No ascites or other fluid collection. No free air. BONES/JOINTS: 6 lumbar type vertebral bodies. 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 Grade 1 degenerative anterolisthesis of L4 on L5 is unchanged. Less than grade 1 degenerative anterolisthesis of L4 on L5 has increased slightly. Calcified posterior bulging annulus at L4-L5 disc space level is unchanged. No lytic or blastic lesions. SOFT TISSUES: Unremarkable. No discrete abdominal or pelvic wall hernia. VASCULATURE: Unremarkable. Abdominal aorta is non-dilated. LYMPH NODES: Unremarkable. No enlarged lymph nodes. CT/Abdomen/Pelvis without Cont IMPRESSION: 1. Heterogeneous low-attenuation lesions in segment 4, segment 5, segment 8, segment 7 and segment 6 of the liver parenchyma are new findings. I am uncertain if these are asymmetric fatty infiltrations or liver masses. Three-phase contrast CT of the liver will be very helpful for further evaluation. 2. Sigmoid diverticulosis without diverticulitis. 3. 4 mm nonobstructing stone in the right upper renal infundibulum and 10 mm linear nonobstructing stone in the left lower renal infundibulum. No bilateral hydronephrosis. 4. Nonvisualization of the appendix but no secondary signs of acute appendicitis. 5. 6 lumbar type vertebral bodies. 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 Thoracic spine radiographs will help confirm/clarify if desired. 6. Mild increase in degenerative anterolisthesis of L4 on L5 but the partially calcified posterior bulging annulus at L4-L5 disc space level is unchanged. 7. Grade 1 degenerative anterolisthesis of L5 on S1 is unchanged. Electronically Signed: Harlan Diaz MD at 13:28 EST ,
--- NOTE | 2023-05-02 12:11 | EDS_ITS ---
HPI History of Present Illness Chief Complaint: Complaint Informant: patient Narrative Narrative: Patient presents secondary to right flank pain. She points to the right mid back and states she has pain that is intermittent and sharp which wraps around to her mid abdomen, right groin, and somewhat down her leg. Pain has been intermittent for the past several days. She called her PCP who was booked so she came in here to be evaluated. She denies fever or chills. She denies dysuria, but states sometimes when she empties her bladder she will only get a small amount out. She also feels constipated and has not had a bowel movement 2 days. [facility] Medical History Chest pain Diabetes Hypertension Home Medications amlodipine 10 mg tablet 10 mg PO DAILY 04/21/16 [History Last Taken Unknown] hydrochlorothiazide 25 mg tablet 12.5 mg PO DAILY 04/21/16 [History Last Taken Unknown] levothyroxine 100 mcg tablet 112 mcg PO DAILY 04/21/16 [History Last Taken Unknown] lisinopril 10 mg tablet 10 mg PO DAILY 04/21/16 [History Last Taken Unknown] metformin 1,000 mg tablet 1,000 mg PO BIDCM 04/21/16 [History Last Taken Unknown] omega-3 fatty acids-fish oil 340 mg-1,000 mg capsule 1 ea PO DAILY 04/21/16 [History Last Taken Unknown] simvastatin 10 mg tablet 10 mg PO QHS 04/21/16 [History Last Taken Unknown] aspirin 81 mg tablet,delayed release (Adult Low Dose Aspirin) 81 mg PO QDAY 08/29/17 [History Last Taken Unknown] ondansetron 4 mg disintegrating tablet 4 mg PO Q8H PRN PRN Nausea #10 tabs 04/25/18 [Rx Last Taken Unknown] ergocalciferol (vitamin D2) 1,250 mcg (50,000 unit) capsule (Vitamin D2) 5,000 iu PO DAILY 07/20/18 [History Last Taken Unknown] gabapentin 100 mg capsule 100 mg PO TIDCM 07/20/18 [History Last Taken Unknown] insulin glargine U-300 conc 300 unit/mL (1.5 mL) subcutaneous pen ([place] SoloStar U-300 Insulin) 72 unit SQ DAILY 07/20/18 [History Last Taken Unknown] insulin regular human 100 unit/mL injection solution (Novolin R Regular U-100 Insulin) 26 unit subcut BID 07/20/18 [History Last Taken Unknown] insulin regular human 100 unit/mL injection solution (Novolin R Regular U-100 Insulin) 28 unit subcut DINNER 07/20/18 [History Last Taken Unknown] loratadine 10 mg tablet (Allergy Relief (loratadine)) 10 mg PO DAILY 07/20/18 [History Last Taken Unknown] oxycodone-acetaminophen 5 mg-325 mg tablet (Percocet) 1 tab PO Q8H PRN pain 3 days #10 tabs 05/02/23 [Rx Last Taken Unknown] Allergy/AdvReac Type Severity Reaction Status Date / Time amoxicillin trihydrate Allergy Rash Verified 05/02/23 11:14 [From Augmentin] codeine Allergy Rash Verified 05/02/23 11:14 niacin Allergy Rash Verified 05/02/23 11:18 Penicillins Allergy Rash Verified 05/02/23 11:14 potassium clavulanate Allergy Rash Verified 05/02/23 11:14 [From Augmentin] Sulfa (Sulfonamide Allergy Rash Verified 05/02/23 11:14 Antibiotics) lovastatin AdvReac MUSCLE PAIN Verified 05/02/23 11:18 Family History Other Cancer Diabetes Surgical History Hx of cholecystectomy Hx of hysterectomy Hx of thyroidectomy Social History Smoking Status: Never smoker ROS ROS ED Constitutional Constitutional ED: Denies chills or fever(s) Eyes Eyes: Denies discharge from eye(s) ENT ENT ED: Denies discharge from eye(s), rhinorrhea or sore throat Cardiovascular Cardiovascular: Denies chest pain or palpitations Respiratory/Chest Respiratory/Chest: Denies cough or dyspnea Gastrointestinal Gastrointestinal: Reports abdominal pain; Denies diarrhea, nausea or vomiting Genitourinary Genitourinary ED: Reports difficulty urinating; Denies dysuria or hematuria Musculoskeletal Musculoskeletal: Reports back pain; Denies extremity pain Integumentary Denies Abrasions or rash Neurologic Neurologic: Denies headache(s) or weakness Psychiatric Psychiatric: Denies anxiety or depression Allergic/Immunologic Allergic/Immunologic ED: Denies lip swelling or urticaria EXAM Physical Exam Const Vital Signs: 05/02/23 11:12 Temperature 97.8 F Temperature Source Temporal Pulse Rate 88 Respiratory Rate 16 Blood Pressure 124/58 H Blood Pressure Mean 80 Pulse Ox 95 Oxygen Delivery Method Room Air Positive well nourished and well developed General Appearance ED: well developed HEENT Reports moist mucous membranes Eyes EOMs intact bilaterally Chest Wall inspection of chest normal and palpation of chest normal Resp normal respiratory effort and clear to auscultation bilaterally Cardio regular rate and regular rhythm GI non-tender Palpation: soft Back/Spine Back/Spine Narrative: Right lumbar paraspinal muscular tenderness palpation Extremity normal to inspection Neuro oriented x3 Neuro Narrative: Good strength and sensation noted in the lower extremities. Psych mental status grossly normal Skin no rashes or lesions noted MDM MDM MDM Narrative Medical decision making narrative: Urinalysis was obtained by nursing protocol. She has 3+ bacteria with 25-50 epithelial cells but no other findings. At the time of my exam IV line is ordered along with IV fluids. Labwork obtained to evaluate for leukocytosis, anemia, and electrolyte derangement. CT scan the flank would be obtained to evaluate for hydronephrosis, ureterolithiasis, appendicitis. Lab Data Attestation: I reviewed the patient's lab results. Labs: Laboratory Results - last 24 hr 05/02/23 05/02/23 11:25 12:30 WBC 8.9 RBC 3.80 L Hgb 13.8 Hct 39.8 MCV 104.7 H MCH 36.3 H MCHC 34.7 RDW Std Deviation 47.2 H RDW Coeff of Joyce 12.0 Plt Count 255 MPV 11.2 Immature Gran % (Auto) 0.300 Neut % (Auto) 61.2 Lymph % (Auto) 28.4 Nelson % (Auto) 8.0 Eos % (Auto) 1.2 Baso % (Auto) 0.9 Absolute Neuts (auto) 5.5 Absolute Lymphs (auto) 2.53 Nucleated RBC % 0 Platelet Estimate ADEQUATE Plt Morphology Comment GIANT RBC Morphology NORM C+C Sodium 139 Potassium 5.0 Chloride 110 H Carbon Dioxide 26.0 Anion Gap 3 L BUN 21 H Creatinine 0.93 Estim Creat Clear Calc 56.54 Est GFR (MDRD) Af Amer 76 Est GFR (MDRD) Non-Af 63 BUN/Creatinine Ratio 22.5 H Glucose 144 H Calcium 9.7 Urine Color Yellow Urine Clarity Sl. Cloudy Urine pH 5.0 Ur Specific [place] 1.020 Urine Protein Negative Urine Glucose (UA) Normal Urine Ketones Negative Urine Occult Blood Negative Urine Nitrite Negative Urine Bilirubin Negative Urine Urobilinogen Normal Ur Leukocyte Esterase Negative Urine RBC 0 SEEN Urine WBC 0 SEEN Ur Squamous Epith Cells 25-50 SEEN Urine Bacteria 3+ Urine Mucus 0 SEEN Radiography Diagnostic Testing: Clinical Impression(s) from Imaging Studies Abdomen/Pelvis CT 05/02/23 12:10 IMPRESSION: 1. Heterogeneous low-attenuation lesions in segment 4, segment 5, segment 8, segment 7 and segment 6 of the liver parenchyma are new findings. I am uncertain if these are asymmetric fatty infiltrations or liver masses. Three-phase contrast CT of the liver will be very helpful for further evaluation. 2. Sigmoid diverticulosis without diverticulitis. 3. 4 mm nonobstructing stone in the right upper renal infundibulum and 10 mm linear nonobstructing stone in the left lower renal infundibulum. No bilateral hydronephrosis. 4. Nonvisualization of the appendix but no secondary signs of acute appendicitis. 5. 6 lumbar type vertebral bodies. 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 Thoracic spine radiographs will help confirm/clarify if desired. 6. Mild increase in degenerative anterolisthesis of L4 on L5 but the partially calcified posterior bulging annulus at L4-L5 disc space level is unchanged. 7. Grade 1 degenerative anterolisthesis of L5 on S1 is unchanged. Electronically Signed: Harlan Diaz MD at 13:28 EST , Treatment and Re-Evaluation :: CBC reveals normal white count 8.9 with hemoglobin 13.8. Normal differential. Chemistry studies unremarkable with a glucose of 144. Urinalysis reveals 3+ bacteria with epithelial cells but no white cells, leukocyte esterase, or nitrites. CT of the flank does reveal some lesions in her liver that may be fatty infiltration versus masses. Further imaging studies recommended. This was discussed with the patient and she will call her primary care physician. She also has evidence of nonobstructing stones in the kidneys bilaterally. Nonvisualization of the appendix however no secondary signs of acute appendicitis. 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 Test results are discussed with the patient. She states she is currently on tramadol for her back pain but not improved. I will write her a short course of Percocet which she has done well with in the past. She was advised that she cannot take her tramadol with this. She will follow-up with her primary care physician and return instructions been provided. Discharge Plan Triage Chief Complaint: Complaint Other Complaint: Back Constipation ED Provider: Judi Barragan Dx/Rx/DC Orders Clinical Impression: Flank pain Instructions: ED Flank Pain, Uncertain Cause Prescriptions: New oxycodone-acetaminophen [Percocet] 5-325 mg tablet 1 tab PO Q8H PRN (Reason: pain) 3 Days Qty: 10 0RF No Action aspirin [Adult Low Dose Aspirin] 81 mg tablet,delayed release (DR/EC) 81 mg PO QDAY simvastatin 10 MG tablet 10 mg PO QHS levothyroxine 100 MCG tablet 112 mcg PO DAILY amlodipine 10 MG tablet 10 mg PO DAILY metformin 1,000 MG tablet 1,000 mg PO BIDCM lisinopril 10 MG tablet 10 mg PO DAILY hydrochlorothiazide 25 MG tablet 12.5 mg PO DAILY omega-3 fatty acids-fish oil 1 EACH capsule 1 ea PO DAILY ondansetron 4 MG tablet 4 mg PO Q8H PRN PRN (Reason: Nausea) Qty: 10 0RF gabapentin 100 MG capsule 100 mg PO TIDCM ergocalciferol (vitamin D2) [Vitamin D2] 50,000 UNIT capsule 5,000 iu PO DAILY loratadine [Allergy Relief (loratadine)] 10 MG tablet 10 mg PO DAILY insulin regular human [Novolin R Regular U100 Insulin] 100 UNIT/ML solution 26 unit subcut BID Rx Instructions: breakfast and lunch insulin regular human [Novolin R Regular U100 Insulin] 100 UNIT/ML solution 28 unit subcut DINNER insulin glargine U-300 conc [[place] SoloStar U-300 Insulin] 300 UNIT/ML insulin pen 72 unit SQ DAILY Primary Care Provider: Alfredo Brooks Referrals: Alfredo Brooks DO [Primary Care Provider] - 5-7 Days Activity Restrictions/Additional Instructions: Reminder: Your CT scan showed some focal areas in your liver that require further evaluation with another imaging test. Please follow-up with your primary care doctor for this. Disposition Disposition: Home, Self Care
[2023-05-02 12:43] LABS: Absolute Lymphocyte Count 2.53 X10^3/uL (0.83-4.51); Absolute Neutrophil Count 5.5 X10^3/uL (2.0-7.7); Basophil# 0.08 X10^3/uL; Basophil% 0.9 % (0-1); Eosinophil# 0.11 X10^3/uL; Eosinophils% 1.2 % (0-5); Hematocrit 39.8 % (37-47); Hemoglobin 13.8 g/dL (12.0-15.0); Lymphocyte # 2.53 X10^3/ul (0.83-4.51); Lymphocyte % 28.4 % (19-41); Mean Corp Hgb Conc 34.7 g/dL (32-36); Mean Corpuscular Hgb 36.3 pg (27.0-32.0); Mean Corpuscular Volume 104.7 fL (81-99); Mean Platelet Vol. 11.2 fl (6.2-12.0); Monocyte# 0.71 X10^3/uL; NRBC Flagged by Analyzer 0 % (0-5); Neutrophil # 5.45 X10^3/uL (2.7-7.7); Neutrophil % 61.2 % (47-70); POSITIVE COUNT YES; Platelet Count 255 K/mm3 (150-450); RBC Distribution Width SD 47.2 fl (35.1-43.9); White Blood Count 8.9 K/mm3 (4.4-11.0)
[2023-05-02] MEDS: 0.9% Normal Saline (1000mL) 1,000 ML 150 ML IV (12:50)
[2023-05-02 13:11] LABS: Anion Gap 3 (5-15); BUN 21 mg/dL (7-18); BUN/Creat Ratio 22.5 RATIO (10-20); Calcium,Total 9.7 mg/dL (8.5-10.1); Chloride 110 mmol/L (98-107); Creatinine, Serum 0.93 mg/dL (0.55-1.02); EST Glomerular Filtration Rate 63 mL/min (>60); Est Glom Filt Rate - Afr Amer 76 mL/min (>60); Estimated Creatinine Clearance 56.54 ml/min; Glucose 144 mg/dL (74-106); Sodium Level 139 mmol/L (136-145)
[2023-05-02 13:14] LABS: Differential Indicated SCAN CRITERIA MET
[2023-05-02 13:15] LABS: Platelet Estimate ADEQUATE (ADEQ); Platelet Morphology GIANT; Red Cell Morphology NORM C+C NORMAL (NORM C&C)
[2023-05-02 14:29] VITALS: BP 124/79; PULSE 74; RESP 16; TEMP 36.6; O2SAT 98
--- OUTSIDE RECORDS SUMMARY | 2023-05-02 16:18 | XMS RPT_ITS | CCD ---
Author Name Unknown Address [address] [place] [address] Organization [facility] Care Team Providers Care Truck Assembler Name Role Phone Alfredo Brooks Primary Care Provider PROVIDER, UNKNOWN Referring Unavailable Alfredo Brooks Attending Unavailable Petrilla, Alfredo Primary Care Unavailable PROVIDER, UNKNOWN Referring Unavailable Petrilla, Alfredo Primary Care Unavailable Petrilla, Alfredo Attending Unavailable Petrillgladys GALLAGHER Alfredo Camp Primary Care Provider Todd GALLAGHER Alfredo F Primary Care Provider Petrilla DO, Alfredo F Primary Care Provider TODD ALFREDO Attending Unavailable PETRILLA, ALFREDO Primary Care Unavailable KHADRA WEINBERG Attending Unavailable PETRILLA, ALFREDO Primary Care Unavailable PETRILLA, ALFREDO Primary Care Unavailable JUDI SANTIAGO Attending Unavailable SERVANDO LINCOLN Attending Unavailable PETRILLA, ALFREDO Primary Care Unavailable PETRILLA, ALFREDO Primary Care Unavailable JUDI SANTIAGO Attending Unavailable PETRILLA, ALFREDO Primary Care Unavailable PETRILLA, ALFREDO Attending Unavailable PETRILLA, ALFREDO Primary Care Unavailable PETRILLA, ALFREDO Attending Unavailable Allergies Allergy Classification Reported Allergen(s) Allergy Type Date of Onset Reaction(s) Facility NSAIDs (2 sources) NSAIDs Drug Allergy 8 Other (See Comments) [facility] Work Phone: Penicillins (antibiotic) (2 sources) Penicillins Drug Allergy 5 [facility] Sulfonamides (antibiotic) (2 sources) Sulfonamides (Antibiotic) Drug Allergy 5 [facility] (20 sources) Penicillins; Translations: [PENICILLINS] Propensity to adverse reactions to drug (disorder) 5 [facility] Repository (1 source) Sulfonamides (Antibiotic); Translations: [SULFA (SULFONAMIDE ANTIBIOTICS)] Propensity to adverse reactions to drug (disorder) 5 [facility] Repository (4 sources) NSAIDs Propensity to adverse reactions to drug 8 Other (See Comments) [facility] Work Phone: (4 sources) Sulfonamides (Antibiotic) Propensity to adverse reactions to drug 5 [employer] Work Phone: (6 sources) Niacin-Lovastati n Er Propensity to adverse reactions to drug 5 [employer] Work Phone: (20 sources) Amoxicillin-Pot Clavulanate Propensity to adverse reactions [facility] drug [facility] ([facility]atin [facility]) Niacin Drug Allergy 5 [facility] (20 sources) Non-steroidal anti-inflammator y agent Drug Intolerance 8 [facility] (20 sources) Sulfonamides (Antibiotic) Drug Intolerance 5 [facility] (20 sources) Clavulanate Drug Allergy 2 [facility] (20 sources) Codeine Drug Allergy 2 [facility] Medications Current Medications Medication Drug Class(es) Dates Sig (Normalized) Sig (Original) acetaminophen 500 mg oral tablet (20 sources) take 2 tablets by mouth at bedtime acetaminophen (Tylenol) 500 MG tablet Take 1,000 mg by mouth in the morning and at bedtime. 0 Active acetaminophen 325 mg / HYDROcodone bitartrate 5 mg oral tablet (2 sources) Opioid Agonist Start: 12-29-2022 End: 01-03-2023 take 1 tablet by mouth twice daily as needed for pain and pain, then take 1 tablet by mouth twice daily as needed for pain and pain HYDROcodone-acetami nophen ([place]) 5-325 MG tablet Indications: Lumbar radiculopathy Take 1 tablet by mouth 2 times daily as needed for severe pain (7-10) for up to 5 days. One bid prn for severe low back or leg pain (instead of Tramadol) 20 tablet 0 12/29/2022 01/03/2023 Active Completed/Discontinued Medications Medication Drug Class(es) Dates Sig (Normalized) Sig (Original) aspirin 81 mg / calcium carbonate 777 mg oral tablet (4 sources) Platelet Aggregation Inhibitor, Nonsteroidal Anti-inflammatory Drug End: 05-31-2022 Aspirin-Calcium Carbonate 81-777 MG tablet Take 81 mg by mouth. 0 05/31/2022 Discontinued (Therapy completed) atorvastatin 20 mg oral tablet (4 sources) HMG-CoA Reductase Inhibitor Start: 01-17-2005 End: 06-02-2022 atorvastatin (Lipitor) 20 MG tablet Take by mouth. 0 01/17/2005 06/02/2022 Discontinued calcium chloride 0.0014 meq/ml / potassium chloride 0.004 meq/ml / sodium chloride 0.103 meq/ml / sodium lactate 0.028 meq/ml injectable solution (1 source) Start: 03-31-2019 End: 03-31-2019 lactated ringers bolus cholecalciferol 1.25 mg oral capsule (20 sources) Vitamin D End: 12-21-2022 cholecalciferol (Vitamin D-3) 1.25 MG (01430 UT) capsule Take 1 capsule by mouth. 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; Translations: [Retinopathy with type 2 diabetes mellitus] Onset: 02-28-1996 Resolved: 05-21-2019 11-04-2015 Chronic Disorders of lipid metabolism (20 sources) Pure hypercholesterolemia; Translations: [Pure hypercholesterolemia, unspecified] Onset: 09-26-2014 09-26-2014 Chronic Diverticulosis and diverticulitis (20 sources) Diverticulitis of colon; Translations: [Diverticulitis of large intestine without perforation or abscess without bleeding] Onset: 05-26-2022 Chronic Essential hypertension (20 sources) Essential hypertension; Translations: [Essential (primary) hypertension] Onset: 02-27-2002 Resolved: 09-02-2015 12-10-2016 Chronic Other hematologic conditions (20 sources) Macrocytosis - no anemia; Translations: [Other specified diseases of blood and blood-forming organs] Onset: 04-01-2018 04-01-2018 Chronic Other nutritional; endocrine; and metabolic disorders (20 sources) Morbid obesity; Translations: [Morbid (severe) obesity due to excess calories] Onset: 05-14-2020 05-14-2020 Chronic Other nutritional; endocrine; and metabolic disorders (2 sources) Morbid (severe) obesity due to excess calories; Translations: [Morbid (severe) obesity due to excess calories (HCC)] Onset: 05-26-2022 Chronic Other screening for suspected conditions (not mental disorders or infectious disease) (3 sources) Encounter for screening mammogram for malignant neoplasm of breast; Translations: [Patient encounter status] Onset: 12-14-2021 Episodic Other upper respiratory disease (20 sources) Allergic rhinitis; Translations: [Allergic rhinitis, unspecified] Onset: 11-27-2014 Resolved: 11-04-2015 09-24-2016 Chronic Other upper respiratory disease (20 sources) Perennial allergic rhinitis; Translations: [Other allergic rhinitis] Onset: 05-21-2019 05-21-2019 Chronic Residual codes; unclassified (6 sources) Family history of malignant neoplasm of gastrointestinal tract; Translations: [Family history of malignant neoplasm of digestive organs] 09-26-2014 Episodic Thyroid disorders (20 sources) Hypothyroidism; Translations: [Acquired hypothyroidism] Onset: 02-27-2003 Resolved: 11-04-2015 12-10-2016 Chronic Past or Other Problems Problem Classification Problem Date Documented Da te Episodic/Chronic Benign neoplasm of uterus (20 sources) Uterine leiomyoma; Translations: [Leiomyoma of uterus, unspecified] Onset: 01-17-2005 12-16-2021 Episodic Calculus of urinary tract (20 sources) History of calculus of kidney; Translations: [Personal history of urinary calculi] Onset: 03-30-2019 05-21-2019 Episodic Diabetes mellitus without complication (20 sources) Type 2 diabetes mellitus without complication; Translations: [Type 2 diabetes mellitus] Onset: 02-28-1996 Resolved: 09-27-2022 02-03-2017 Chronic Menstrual disorders (20 sources) Excessive and frequent menstruation; Translations: [Excessive and frequent menstruation with regular cycle] Onset: 01-17-2005 Resolved: 09-27-2022 12-16-2021 Chronic Nephritis; nephrosis; renal sclerosis (3 sources) Kidney disease; Translations: [Nephropathy induced by other drugs, medicaments and biological substances] Resolved: 05-21-2019 05-21-2019 Chronic Nonspecific chest pain (20 sources) Chest pain; Translations: [Chest pain, unspecified] Onset: 12-01-2021 Resolved: 09-27-2022 05-26-2022 Episodic Other aftercare (2 sources) assisted (current) use of insulin; Translations: [assisted (current) use of insulin (HCC)] Onset: 05-26-2022 Episodic Other connective tissue disease (2 sources) Pain in left foot; Translations: [Pain in left foot] Onset: 02-09-2021 Episodic Other diseases of kidney and ureters (3 sources) Kidney disease; 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)] Resolved: 05-21-2019 05-21-2019 Episodic Other gastrointestinal disorders (1 source) History of irritable bowel syndrome Episodic Other nervous system disorders (6 sources) Disorder of the peripheral nervous system; Translations: [Hereditary and idiopathic neuropathy, unspecified] Resolved: 09-02-2015 09-24-2016 Chronic Other upper respiratory disease (20 sources) Bleeding from nose; Translations: [Epistaxis] Onset: 05-12-2022 Resolved: 09-27-2022 05-26-2022 Episodic Other upper respiratory disease (1 source) Epistaxis; Translations: [Epistaxis] Onset: 05-12-2022 Episodic Other upper respiratory infections (20 sources) Acute pharyngitis; Translations: [Acute pharyngitis, unspecified] Onset: 05-26-2022 Resolved: 09-27-2022 05-26-2022 Episodic Residual codes; unclassified (20 sources) Family history of cancer of colon; Translations: [Family history of malignant neoplasm of digestive organs] Onset: 09-26-2014 03-01-2022 Episodic Spondylosis; intervertebral disc disorders; other back problems (20 sources) Lumbar radiculopathy; Translations: [Radiculopathy, lumbar region] Onset: 01-21-2018 04-01-2018 Episodic Unclassified (4 sources) Type 2 diabetes mellitus without complication; Translations: [Uncontrolled type 2 diabetes mellitus without complication, with long-term current use of insulin] Onset: 11-04-2015 Resolved: 02-03-2017 02-03-2017 Results Test Name Value Interpretation Reference Range Facil ity Vital Signs Date Time Vital Sign Value Performing Clinician Faccedrick hilly 12-29-2022 08:42-0400 Body height 152.4 cm Alfredo Brooks DO Work Phone: [facility] 12-29-2022 08:42-0400 Body mass index (BMI) [Ratio] 44.33 kg/m2 Alfredo Brooks DO Work Phone: [facility] 12-29-2022 08:42-0400 Body temperature 98.4 [degF] Alfredo Brooks DO Work Phone: [facility] 12-29-2022 08:42-0400 Body weight 102.97 kg Alfredo Brooks DO Work Phone: [facility] 12-29-2022 08:42-0400 Diastolic blood pressure 60 mm[Hg] Alfredo Brooks DO Work Phone: [facility] 12-29-2022 08:42-0400 Heart rate 90 /min Alfredo Brooks DO Work Phone: [facility] 12-29-2022 08:42-0400 SaO2% (BldA) [Mass fraction] 98 % Alfredo Brooks DO Work Phone: [facility] 12-29-2022 08:42-0400 Systolic blood pressure 110 mm[Hg] Alfredo Brooks DO Work Phone: [facility] 12-21-2022 11:23-0400 Body height 152.4 cm Judi Santiago APRN - EXTRUDER OPERATOR Work Phone: [facility] 12-21-2022 11:23-0400 Body mass index (BMI) [Ratio] 44.33 kg/m2 Judi Santiago APRN - EXTRUDER OPERATOR Work Phone: [facility] 12-21-2022 11:23-0400 Body weight 102.97 kg Judi Santiago APRN - EXTRUDER OPERATOR Work Phone: [facility] 12-21-2022 11:23-0400 Diastolic blood pressure 58 mm[Hg] Judi Santiago APRN - EXTRUDER OPERATOR Work Phone: [facility] 12-21-2022 11:23-0400 Heart rate 82 /min Judi Jack ELECTRICAL MAINTENANCE MAN - EXTRUDER OPERATOR Work Phone: [facility] 12-21-2022 11:23-0400 Systolic blood pressure 112 mm[Hg] Judi Jack ELECTRICAL MAINTENANCE MAN - EXTRUDER OPERATOR Work Phone: [facility] 09-27-2022 07:48-0400 Body height 152.4 cm Alfredo Lockea DO Work Phone: [facility] 09-27-2022 07:48-0400 Body mass index (BMI) [Ratio] 45.9 kg/m2 Alfredo Lockea DO Work Phone: [facility] 09-27-2022 07:48-0400 Body temperature 97.3 [degF] Alfredo Lockea DO Work Phone: [facility] 09-27-2022 07:48-0400 Body weight 106.59 kg Alfredo Lockea DO Work Phone: [facility] 09-27-2022 07:48-0400 Diastolic blood pressure 70 mm[Hg] Alfredo Lockea DO Work Phone: [facility] 09-27-2022 07:48-0400 Heart rate 76 /min Alfredo Lockea DO Work Phone: [facility] 09-27-2022 07:48-0400 SaO2% (BldA) [Mass fraction] 96 % Alfredo Lockea DO Work Phone: [facility] 09-27-2022 07:48-0400 Systolic blood pressure 110 mm[Hg] Alfredo Lockea DO Work Phone: [facility] 09-14-2022 11:19-0400 Body height 152.4 cm Judi Jack CHENN - EXTRUDER OPERATOR Work Phone: [facility] 09-14-2022 11:19-0400 Body mass index (BMI) [Ratio] 46.05 kg/m2 Judi Jack ELECTRICAL MAINTENANCE MAN - EXTRUDER OPERATOR Work Phone: [facility] 09-14-2022 11:19-0400 Body weight 106.96 kg Judi Santiago ELECTRICAL MAINTENANCE MAN - EXTRUDER OPERATOR Work Phone: [facility] 09-14-2022 11:19-0400 Diastolic blood pressure 60 mm[Hg] Judi Santiago ELECTRICAL MAINTENANCE MAN - EXTRUDER OPERATOR Work Phone: [facility] 09-14-2022 11:19-0400 Heart rate 73 /min Judi Santiago ELECTRICAL MAINTENANCE MAN - EXTRUDER OPERATOR Work Phone: [facility] 09-14-2022 11:19-0400 Systolic blood pressure 110 mm[Hg] Judi Santiago ELECTRICAL MAINTENANCE MAN - EXTRUDER OPERATOR Work Phone: [facility] 06-02-2022 14:41-0400 Body height 152.4 cm Servando Dewey MD Work Phone: [facility] 06-02-2022 14:41-0400 Body mass index (BMI) [Ratio] 48.28 kg/m2 Servando Dewey MD Work Phone: [facility] 06-02-2022 14:41-0400 Body weight 112.13 kg Servando Dewey MD Work Phone: [facility] 06-02-2022 14:41-0400 Diastolic blood pressure 72 mm[Hg] Servando Dewey MD Work Phone: [facility] 06-02-2022 14:41-0400 Heart rate 87 /min Servando Dewey MD Work Phone: [facility] 06-02-2022 14:41-0400 Systolic blood pressure 128 mm[Hg] Servando Dewey MD Work Phone: [facility] 05-31-2022 12:19-0400 Body height 152.4 cm Alfredo Brooks DO Work Phone: [facility] 05-31-2022 12:19-0400 Body mass index (BMI) [Ratio] 48.04 kg/m2 Alfredo Brooks DO Work Phone: [facility] 05-31-2022 12:19-0400 Body temperature 97.7 [degF] Alfredo Brooks DO Work Phone: [facility] 05-31-2022 12:19-0400 Body weight 111.58 kg Alfredo Brooks DO Work Phone: [facility] 05-31-2022 12:19-0400 Diastolic blood pressure 65 mm[Hg] Alfred[facility] Brooks DO [facility] 05-31-2022 12:19-0400 Heart rate 71 /min Alfredo Brooks DO Work Phone: [facility] 05-31-2022 12:19-0400 SaO2% (BldA) [Mass fraction] 95 % Alfredo Brooks DO Work Phone: [facility] 05-31-2022 12:19-0400 Systolic blood pressure 110 mm[Hg] Alfredo Brooks DO [facility] 06-21-2020 15:41-0400 Diastolic blood pressure 60 mm[Hg] Vinicius Gombash DO Work Phone: [facility] Work Phone: 06-21-2020 15:41-0400 Heart rate 79 /min Vinicius Gombash DO Work Phone: [facility] Work Phone: 06-21-2020 15:41-0400 Respiratory rate 18 /min Vinicius Gombash DO Work Phone: [facility] Work Phone: 06-21-2020 15:41-0400 SaO2% (BldA) [Mass fraction] 94 % Vinicius Gombash DO Work Phone: [facility] Work Phone: 06-21-2020 15:41-0400 Systolic blood pressure 130 mm[Hg] Vinicius Gombash DO Work Phone: [facility] Work Phone: 06-21-2020 12:47-0400 Body mass index (BMI) [Ratio] 46.87 kg/m2 Vinicius Marrash DO Work Phone: [facility] Work Phone: 06-21-2020 12:47-0400 Body temperature 98.01 [degF] Vinicius Marrash DO Work Phone: [facility] Work Phone: 06-21-2020 12:47-0400 Body weight 108.86 kg Vinicius Marrash DO Work Phone: [facility] Work Phone: 03-31-2019 11:14-0500 Body mass index (BMI) [Ratio] 45.9 kg/m2 Alfredo Lockea DO Work Phone: [facility] Work Phone: 03-31-2019 11:14-0500 Body temperature 98.71 [degF] Alfredo Lockea DO Work Phone: [facility] Work Phone: 03-31-2019 11:14-0500 Body weight 106.59 kg Alfredo Lockea DO Work Phone: [facility] Work Phone: 03-31-2019 11:14-0500 Diastolic blood pressure 83 mm[Hg] Alfredo Lockea DO Work Phone: [facility] Work Phone: 03-31-2019 11:14-0500 Heart rate 82 /min Alfredo Henriquezlla DO Work Phone: [facility] Work Phone: 03-31-2019 11:14-0500 Respiratory rate 16 /min Alfredo Henriquezlla DO Work Phone: [facility] Work Phone: 03-31-2019 11:14-0500 SaO2% (BldA) [Mass fraction] 94 % Alfredo Henriquezlla DO Work Phone: [facility] Work Phone: 03-31-2019 11:14-0500 Systolic blood pressure 152 mm[Hg] Alfredo Brooks DO Work Phone: [facility] Work Phone: Encounters Encounter Date Encounter Type Care Provider Facility Start: 04-03-2023 Refill Servando Dewey MD Work Phone: [facility] Procedures Date Procedure Procedure Detail Performing Clinician Start: 12-21-2022 Hemoglobin glycosyla michael a1c Judi Santiago ELECTRICAL MAINTENANCE MAN - EXTRUDER OPERATOR Work Phone: Start: 09-14-2022 Hemoglobin glycosyla michael a1c Judi Santiago ELECTRICAL MAINTENANCE MAN - EXTRUDER OPERATOR Work Phone: Start: 09-14-2022 Thyrotropin [Units/v olume] in Serum or Plasma Alfredo Brooks DO Work Phone: Start: 06-02-2022 Hemoglobin glycosyla michael a1c Servando Dewey MD Work Phone: Start: 03-01-2022 Adult depression scr eening assessment Alfredo Brooks DO Work Phone: Start: 03-01-2022 Lipid 1996 panel - S chayito or Plasma Gabriela Pritchard RN Start: 12-15-2021 Mammography Gabriela fowler RN Start: 10-21-2021 Thyrotropin [Units/v olume] in Serum or Plasma Gabriela Pritchard RN Start: 09-18-2020 Screening digital br east tomosynthesis bi Alfredo Brooks DO Work Phone: Start: 06-21-2020 Comprehensive metabo lic panel Sim Schoifeld ELECTRICAL MAINTENANCE MAN - EXTRUDER OPERATOR Work Phone: Start: 06-21-2020 Ct abdomen & pelvis w/o contrast material Sim Schofield APRN - EXTRUDER OPERATOR Work Phone: Start: 03-31-2019 CT ABDOMEN PELVIS W CONTRAST Dell Villatoro PA-C Work Phone: Start: 03-31-2019 Urnls dip stick/tabl et rgnt auto w/o microscopy Dell Villatoro PA-C Work Phone: Start: 03-31-2019 Basic metabolic pane l calcium total Dell Villatoro PA-C Work Phone: Start: 03-31-2019 Hepatic function panel Dell Villatoro PA-C Work Phone: Start: 12-25-2018 Colonoscopy Alfredo vicente DO Work Phone: Start: 07-20-2018 Ecg routine ecg w/le ast 12 lds i&r only Plan of Treatment Date Care Activity Detail Author Start: 12-25-2028 Colon cancer screen colonoscopy Colon cancer screen colonoscopy [facility] Work Phone: Start: 12-25-2028 Screening for malignant neoplasm of colon [facility] Start: 02-09-2026 Cyanocobalamin vitamin b-12 Vitamin B-12 [facility] Start: 12-22-2023 Hemoglobin A1c measurement Diabetes: Hemoglobin A1C [facility] Start: 09-15-2023 Hemoglobin A1c measurement Diabetes: Hemoglobin A1C [facility] Start: 09-15-2023 Thyroid stimulating hormone measurement TSH Level [facility] Start: 08-14-2023 End: 08-14-2023 Patient encounter procedure 08/14/2023 9:30 AM EDT Office Visit [facility] [address] [place] [address] Judi Santiago, ELECTRICAL MAINTENANCE MAN - EXTRUDER OPERATOR [address] [place] [address] [facility] Start: 07-22-2023 Glaucoma screening Diabetes: Retinopathy Screening [facility] Start: 06-01-2023 Diabetic foot examination Diabetes: Foot Exam [facility] Start: 05-30-2023 End: 05-30-2023 Patient encounter procedure 05/30/2023 3:00 PM EDT Appointment [facility] [address] [place] [address] Alfredo Brooks, DO [address] [place] [address] [facility] Start: 04-28-2023 End: 04-28-2023 Patient encounter procedure 04/28/2023 11:30 AM EST Office Visit [facility] [address] [place] [address] Alfredo Brooks, [address] [place] [address] [facility] Start: 04-20-2023 End: 04-20-2023 Patient encounter procedure 04/20/2023 8:40 AM EST Office Visit [facility] [address] [place] [phone] Servando Dewey MD [address] [place] [address] [facility] Start: 04-03-2023 End: 04-03-2023 Patient encounter procedure 04/03/2023 10:30 AM EST Office Visit [facility] [address] [place] [address] Alfredo Brooks DO [address] [place] [address] [facility] Start: 03-31-2023 Glaucoma screening Diabetes: Retinopathy Screening [facility] Start: 03-31-2023 Medicare Annual Wellness (AWV) Medicare Annual Wellness (AWV) [facility] Start: 03-30-2023 End: 03-30-2023 Patient encounter procedure 03/30/2023 1:20 PM EST Office Visit [facility] [address] [place] [phone] Servando Dewey MD [address] [place] [address] [facility] Start: 03-23-2023 End: 12-22-2023 Comprehensive metabolic 1998 panel - Serum or Plasma Comprehensive metabolic panel Lab Routine Type 2 diabetes mellitus with hyperglycemia, with long-term current use of insulin (HCC) Expected: 03/23/2023, Expires: 12/22/2023 [facility] Immunizations Immunization Date Immunization Notes Care Provider Tariq araya 12-29-2022 Influenza, Seasonal, Quadrivalent, Adjuvanted Alfredo Petrilla DO Work Phone: [facility] 11-25-2021 Influenza, FLUAD, (a ge 65 y+), Adjuvanted, 0.5mL Alfredo Petrilla DO [facility] Phone: [facility] Work [facility]: 11-25-2021 influenza, injectabl e, quadrivalent, preservative free [employer] DO Work Phone: [facility] 11-25-2021 unknown vaccine or i mmune globulin [employer] DO Work Phone: [facility] 11-25-2021 influenza virus vacc ine, unspecified formulation Judi Santiago ELECTRICAL MAINTENANCE MAN - EXTRUDER OPERATOR Work Phone: [facility] 03-17-2021 COVID-19, MODERNA BL UE border, Primary or Immunocompromised, (age 12y+), IM, 100 mcg/0.5mL Alfredo Petrilla DO Work Phone: [facility] Work Phone: 02-08-2021 Influenza, FLUZONE ( age 65 y+), High Dose, 0.7mL Alfredo Petrilla DO Work Phone: [facility] Work Phone: 06-11-2020 COVID-19, Moderna, P F, 100mcg/0.5mL Alfredo Petrilla DO Work Phone: [facility] Work Phone: 05-14-2020 COVID-19, Moderna, P F, 100mcg/0.5mL Alfredo Petrilla DO [facility] Work Phone: 12-25-2019 Influenza, High-dose , Quadv, 65 yrs +, IM (Fluzone) Vinicius Xiong DO Work Phone: [facility] Work Phone: 12-05-2018 influenza, high dose seasonal, preservative-free Alfredo Petrilla DO Work Phone: [facility] 12-05-2018 Influenza, High-dose Seasonal, Quadrivalent, Preservative Free Alfredo Petrilla DO Work Phone: [facility] 12-04-2017 influenza, injectabl e, quadrivalent, contains preservative Alfredo Petrilla DO Work Phone: [facility] 11-28-2016 influenza, injectabl e, quadrivalent, contains preservative Alfredo Petrilla DO Work Phone: [facility] 11-11-2016 pneumococcal polysaccharide vaccine, 23 valent Alfredo Petrilla DO Work Phone: [facility] 01-07-2016 influenza, injectabl e, quadrivalent, contains preservative Alfredo Petrilla DO Work Phone: [facility] Work Phone: 09-02-2015 pneumococcal conjuga te vaccine, 13 valent Alfredo Petrilla DO Work Phone: [facility] 11-26-2014 influenza virus vacc ine, unspecified formulation Alfredo Petrilla DO Work Phone: [facility] 11-26-2014 influenza, high dose seasonal, preservative-free Alfredo Petrilla DO Work Phone: [facility] Work Phone: 11-26-2014 influenza, seasonal, injectable Alfredo Petrilla DO Work Phone: [facility] 01-06-2014 influenza, high dose seasonal, preservative-free Alfredo Petrilla DO Work Phone: [facility] Work Phone: 01-06-2014 influenza, seasonal, injectable Alfredo Petrilla DO Work Phone: [employer] 01-06-2014 pneumococcal polysaccharide vaccine, 23 valent Alfredo Brooks DO Work Phone: [employer] Work Phone: Payers Date Payer Category Payer Unknown 2018 Unknown [employer] [address] [id number] 2018-Present [phone] [address] [place] [address] [id number] 2018 Unknown [id number] 2018 Unknown [employer] [address] xxxxxxxxxxxx 2018-Present [phone] [address] [place] [address] xxxxxxxxxxxx [id number] 2016 Medicare MEDICARE MEDICAR E PART A AND B [id number] 2016-Present [phone] [place] [address] [id number] 2016 Medicare [id number] 2016 Medicare MEDICARE MEDICAR E PART A AND B xxxxxxxxxxx 2016-Present [phone] [address] [place] [address] xxxxxxxxxxx [id number] 2016 Medicare 1950 Unknown [id number] 1950 Unknown [id number] Social History Date Type Detail Facility Start: 08-21-2019 End: 10-21-2021 Tobacco smoking status NHIS Never smoker [facility] Start: 08-21-2019 End: 10-21-2021 Tobacco use and exposure Never used [place], [place] Start: 08-21-2019 End: 03-08-2023 Alcohol intake Ex-drinker (finding) [employer] Work Phone: Start: 05-14-2018 End: 05-12-2022 History SDOH Alcohol Frequency 1 [place] Start: 05-14-2018 End: 11-25-2021 History SDOH Social Connections Phone 5 [employer] Phone: Start: 05-14-2018 History SDOH Social Connections Get Together 2 [place] Start: 05-14-2018 History SDOH [facility] [employer] Phone: Start: 1950 Sex Assigned At Not on file [employer] Work Phone: Start: 05-21-2022 End: 09-27-2022 Exposure to SARS-CoV-2 (event) Not sure [place] Start: 08-10-2020 End: 03-01-2022 Alcohol intake [facility] Start: 05-12-2022 History SDOH Alcohol Std Drinks 0 [facility] Start: 03-01-2022 End: 05-12-2022 Alcohol Use Disorder Identification Test - Consumption [AUDIT-C] [facility] How often to you hav e a drink containing alcohol? Never [facility] How many standard dr inks containing alcohol do you have on a typical day? Patient does not drink [facility] Medical Equipment Procedure Code Equipment Code Equipment Origin al Text Equipment Identifier Dates Use 4 times gabrielle y to check blood glucose E11.65 Please dispense strips that are covered by insurance [id number] Start: 05-28-2018 [employer] [id number] Start: 05-28-2018 1 Device by Does not apply route 3 times daily [id number] Start: 10-01-2018 Use 4 times gabrielle y to check blood glucose E11.65 Please dispense strips that are covered by insurance [id number] Start: 05-17-2021 1 each by Does n ot apply route daily [id number] Start: 10-21-2021 1 Device by Does not apply route 3 times daily [id number] Start: 05-17-2021 Use 4 times gabrielle y to check blood glucose E11.65 Please dispense strips that are covered by insurance [id number] Start: 05-17-2021 Use 4 times gabrielle y to check blood glucose E11.65 Please dispense strips that are covered by insurance [id number] Start: 09-18-2017 End: 12-21-2022 Goals Date Patient Goal Desired Activity /State Clinical Notes 05-10-2022 to 04-03-2023 Telephone Encounter - Arabella Marquez MA - 04/03/2023 3:08 PM ESTTelephone Encounter - Arabella Marquez MA - 04/03/2023 3:08 PM ESTTelephone Encounter - Maura Parra - 04/03/2023 12:38 PM EST Note Date & Type Note Facility 04-03-2023 Telephone encount er Note RX pended for 90 day supply [facility] 04-03-2023 Miscellaneous Notes Formattin g of this note might be different from the original. RX pended for 90 day supply Medication name: insulin glargine (Toujeo SoloStar) 300 UNIT/ML injection Medication dosage: 300 UNIT/ML Monthly quantity needed: 30 How many day supply requestin days Medication route: subcutaneous injection (SQ/SC) Medication administration time(s): Sig: Inject 80 Units under the skin every morning. If taking medication PRN, reason for taking medication: N/A If this is a controlled substance do you receive this or any other controlled medication from any other doctor or facility: N/A Ordering provider: EZRA Santiago Date of last office visit: 12/21/22 Date of next office visit: 08/14/23 Date of last refill: (see medication tab): 12/21/22 Updated/Validated preferred pharmacy: Yes, [facility] - [address] Patient instructed to contact the pharmacy prior to picking up the medication: No Patient's further questions if applicable: Heri cancelled her 04/06/23, 10:40a F/U appt because she is currently in the process of moving, and she has the facilities technician's scheduled to move her that day. Heri rescheduled for 08/14/23 with EZRA Santiago. Please be advised. documented in this encounter [facility] 04-03-2023 Telephone encount er Note Medication name: insulin glargine (Toujeo SoloStar) 300 UNIT/ML injection Medication dosage: 300 UNIT/ML Monthly quantity needed: 30 How many day supply requestin days Medication route: subcutaneous injection (SQ/SC) Medication administration time(s): Sig: Inject 80 Units under the skin every morning. If taking medication PRN, reason for taking medication: N/A If this is a controlled substance do you receive this or any other controlled medication from any other doctor or facility: N/A Ordering provider: EZRA Santiago Date of last office visit: 12/21/22 Date of next office visit: 08/14/23 Date of last refill: (see medication tab): 12/21/22 Updated/Validated preferred pharmacy: Yes, [facility] ([facility] - [address] Patient instructed to contact the pharmacy prior to picking up the medication: No Patient's further questions if applicable: Heri cancelled her 04/06/23, 10:40a F/U appt because she is currently in the process of moving, and she has the facilities technician's scheduled to move her that day. Heri rescheduled for 08/14/23 with EZRA Santiago. Please be advised. [facility] 03-27-2023 Telephone encount er Note Rx loaded [facility] 03-27-2023 Miscellaneous Notes Formattin g of this note might be different from the original. Rx loaded Medication name: traMADol (Ultram) 50 MG tablet - Take 2 tablets (100 mg) by mouth 2 times daily as needed for severe pain (7-10) for up to 120 doses. Medication dosage: 50 mg (Miligrams Monthly quantity needed: 120 How many day supply requestin days Medication route: oral (PO) Medication administration time(s): 2 times a day (BID) If taking medication PRN, reason for taking medication: Take 2 tablets (100 mg) by mouth 2 times daily as needed for severe pain (7-10) for up to 120 doses. If this is a controlled substance do you receive this or any other controlled medication from any other doctor or facility: No Ordering provider: Dr. Brooks Date of last office visit: 12-29-2022 Date of next office visit: 04-03-2023 Date of last refill: (see medication tab): 03-01-2023 Updated/Validated preferred pharmacy: Yes Patient instructed to contact the pharmacy prior to picking up the medication: Yes documented in this encounter [facility] 03-27-2023 Telephone encount er Note Medication name: traMADol (Ultram) 50 MG tablet - Take 2 tablets (100 mg) by mouth 2 times daily as needed for severe pain (7-10) for up to 120 doses. Medication dosage: 50 mg (Miligrams Monthly quantity needed: 120 How many day supply requestin days Medication route: oral (PO) Medication administration time(s): 2 times a day (BID) If taking medication PRN, reason for taking medication: Take 2 tablets (100 mg) by mouth 2 times daily as needed for severe pain (7-10) for up to 120 doses. If this is a controlled substance do you receive this or any other controlled medication from any other doctor or facility: No Ordering provider: Dr. Brooks Date of last office visit: 12-29-2022 Date of next office visit: 04-03-2023 Date of last refill: (see medication tab): 03-01-2023 Updated/Validated preferred pharmacy: Yes Patient instructed to contact the pharmacy prior to picking up the medication: Yes [facility] 03-01-2023 Telephone encount er Note Rx loaded [facility] 03-01-2023 Miscellaneous Notes Formattin g of this note might be different from the original. Rx loaded Medication name: traMADol (Ultram) Medication dosage: 50 mg (Miligrams Monthly quantity needed: 120 How many day supply requestin days Medication route: oral (PO) Medication administration time(s): as needed (PRN) If taking medication PRN, reason for taking medication: Severe pain If this is a controlled substance do you receive this or any other controlled medication from any other doctor or facility: No Ordering provider: Date of last office visit: 12/29/22 Date of next office visit: 04/03/23 Date of last refill: (see medication tab): 01/24/23 Updated/Validated preferred pharmacy: Yes Patient instructed to contact the pharmacy prior to picking up the medication: Yes documented in this encounter [facility] 02-28-2023 Telephone encount er Note Medication name: traMADol (Ultram) Medication dosage: 50 mg (Miligrams Monthly quantity needed: 120 How many day supply requestin days Medication route: oral (PO) Medication administration time(s): as needed (PRN) If taking medication PRN, reason for taking medication: Severe pain If this is a controlled substance do you receive this or any other controlled medication from any other doctor or facility: No Ordering provider: Date of last office visit: 12/29/22 Date of next office visit: 04/03/23 Date of last refill: (see medication tab): 01/24/23 Updated/Validated preferred pharmacy: Yes Patient instructed to contact the pharmacy prior to picking up the medication: Yes [facility] 12-29-2022 History of Presen t illness Narrative Images from the original note were not included. [facility] [address] [place] [address] [address] [facility] [address] Visit type: Established Patient Reason for Visit: Follow-up (6 month med check) and Leg Pain (In upper thighs) Assessment / Plan: Heri was seen today for follow-up and leg pain. Diagnoses and all orders for this visit: Essential hypertension (Primary) Comments: Stable, continue current meds Lumbar radiculopathy Comments: Stable, continue tramadol, back stretches, [place] for as needed severe pain during this upcoming move Orders: - HYDROcodone-acetaminophen ([place]) 5-325 MG tablet; Take 1 tablet by mouth 2 times daily as needed for severe pain (7-10) for up to 5 days. One bid prn for severe low back or leg pain (instead of Tramadol) Hyperlipidemia, unspecified hyperlipidemia type Type 2 diabetes mellitus with diabetic neuropathy, with long-term current use of insulin ([facility] ([facility]) Other orders - Flu vaccine quadrivalent, for patients ages 65+, (Fluad) preservative free - amLODIPine (Norvasc) 5 MG tablet; Take 1 tablet (5 mg) by mouth daily for 180 doses. - hydroCHLOROthiazide (HYDRODiuril) 12.5 MG tablet; Take 1 tablet (12.5 mg) by mouth daily. - lisinopril 30 MG tablet; Take 1 tablet (30 mg) by mouth daily. - metFORMIN XR (Glucophage-XR) 500 MG 24 hr tablet; Take 1 tablet (500 mg) by mouth daily (with breakfast). - metoprolol tartrate (Lopressor) 50 MG tablet; Take 1 tablet (50 mg) by mouth 2 times daily. - simvastatin (Zocor) 20 MG tablet; Take 1 tablet (20 mg) by mouth Nightly. Subjective: Patient ID: Heri Toussaint is a 72 y.o. female. HPI well-controlled hypertensive diabetic presents for tramadol refill for low back pain and sciatica. History of lumbar issues since 2011. 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 She underwent 3 epidural nerve blocks most recently in fall 2020. No recent injury but doing a lot of work packing for a move that is soon to happen. Pain down the right buttock and lateral right thigh. Review of Systems no pain to the feet or toes. No bowel or bladder incontinence. Tape tramadol 3 times daily somewhat effective. She would like some optional treatment. Presently not interested in nerve block. She has failed on gabapentin. A1c excellent. No cardiac or pulmonary concerns. No change in bowels or bladder. Due for mammogram. Colonoscopy due next year Allergies Allergen Reactions Nsaids Rash Other reaction(s): Other (See Comments) HAYDE (Valente) Red itchy burning rash and ears swell Other reaction(s): Other (See Comments) Clavulanic Acid Other reaction(s): Rash Codeine Other reaction(s): Rash Niacin Amoxicillin-Pot Clavulanate Rash Lovastatin Rash Penicillins Rash Other reaction(s): Rash, U Other reaction(s): Rash Other reaction(s): Rash Sulfa Antibiotics Rash Other reaction(s): Rash Current Outpatient Medications on File Prior to Visit Medication Sig Dispense Refill acetaminophen (Tylenol) 500 MG tablet Take 1,000 mg by mouth in the morning and at bedtime. cyanocobalamin (Vitamin B-12) 1000 MCG tablet Take 1,000 mcg by mouth daily. Glucose Blood (Blood Glucose Test) strip Use 4 times daily to check blood glucose E11.65 Please dispense strips that are covered by insurance insulin glargine (Toujeo SoloStar) 300 UNIT/ML injection Inject 80 Units under the skin every morning. 30 mL 3 insulin regular (HumuLIN R,NovoLIN R) 100 UNIT/ML injection 27 units bfast, 36 units lunch, 30 units dinner Strength: 100 UNIT/ML 10 mL 3 levothyroxine (Synthroid, Levoxyl) 112 MCG tablet Take 1 tablet (112 mcg) by mouth every morning. 90 tablet 1 Loratadine 10 MG capsule Take 10 mg by mouth in the morning. METAMUCIL FIBER PO Take by mouth. Misc. Devices misc Handicap placard omega-3 (Fish Oil) 1000 MG capsule Take 1,000 mg by mouth daily. omeprazole (PriLOSEC) [address] capsule Take 10 mg by mouth in the morning. semaglutide (Ozempic) 4 MG/3ML solution pen-injector Inject 1 mg under the skin 1 (one) time per week. 1 each 11 thiamine (Vitamin B-1) 100 MG tablet Take 100 mg by mouth in the morning. traMADol (Ultram) 50 MG tablet Take 1 tablet (50 mg) by mouth every 8 hours as needed for severe pain (7-10) for up to 180 doses. 90 tablet 2 [DISCONTINUED] amLODIPine (Norvasc) 5 MG tablet Take 1 tablet (5 mg) by mouth daily for 90 doses. 90 tablet 0 [DISCONTINUED] hydroCHLOROthiazide (HYDRODiuril) 12.5 MG tablet Take 1 tablet (12.5 mg) by mouth daily. 90 tablet 0 [DISCONTINUED] lisinopril 30 MG tablet Take 1 tablet (30 mg) by mouth daily. 90 tablet 1 [DISCONTINUED] metFORMIN XR (Glucophage-XR) 500 MG 24 hr tablet Take 1 tablet by mouth daily (with breakfast). [DISCONTINUED] metoprolol tartrate (Lopressor) 50 MG tablet Take 1 tablet (50 mg) by mouth 2 times daily. 180 tablet 1 [DISCONTINUED] simvastatin (Zocor) 20 MG tablet Take 1 tablet (20 mg) by mouth Nightly. 90 tablet 0 No current facility-administered medications on file prior to visit. Patient Active Problem List Diagnosis Morbid obesity (HCC) Hypothyroidism (acquired) Diabetic retinopathy associated with type 2 diabetes mellitus (HCC) Type 2 diabetes mellitus with diabetic neuropathy (CMS/HCC) (HCC) Essential hypertension Family history of colon cancer Allergic rhinitis Nontoxic uninodular goiter Pure hypercholesterolemia Lumbar radiculopathy History of renal stone Perennial allergic rhinitis Macrocytosis without anemia Leiomyoma of uterus, unspecified Diverticulitis of colon Hyperlipidemia Social History Tobacco Use Smoking status: Never Smokeless tobacco: Never Substance Use Topics Alcohol use: Not Currently Alcohol/week: 0.0 standard drinks of alcohol Past Surgical History: Procedure Laterality Date CHOLECYSTECTOMY N/A 1999 COLONOSCOPY 08/2016 [facility] COLONOSCOPY 2012 [facility] COLONOSCOPY 11/2018 Dr. Banerjee arnol 2023 PARTIAL HYSTERECTOMY 2004 ovaries intact- TONSILLECTOMY (HISTORICAL) 1976 Family History Problem Relation Name Age of Onset Diabetes Mother age 44, smoker Coronary artery disease Mother Lung cancer Father age 74, smoker Diabetes Father Colon cancer Father Mental illness Sister Estefany acute psychosis, in home in [place], [place] Diabetes type II Sister Estefany Diabetes Sister Val diet cont Heart failure Sister Val COPD Sister Val ex smoker Lung cancer Sister Josette 67 of esophagus and small cell CA 03/16 Esophageal cancer Sister Josette Diabetes Sister Josette smoker and excess ETOH Colon cancer Sister Susana 68 alive age 74 Diabetes Sister Susana Other ([id number]) Brother 2 infants at ?etiol Other ([id number]) Brother still born Diabetes Maternal Grandmother Breast cancer Paternal Grandmother 58 Lung cancer Paternal Grandfather Objective: BP 110/60 Pulse 90 Temp 36.9 C (98.4 F) (Temporal) Ht 5' (1.524 m) Wt 227 lb (103 kg) SpO2 98% BMI 44.33 kg/m Physical Exam she appears well. Well-hydrated. Nonicteric. No JVD adenopathy or thyroid masses. No carotid bruits. Heart is rate without gallops or murmurs. Lungs are clear. Abdomen obese nontender without pain hepatosplenomegaly masses or bruits. Extremities have trace pretibial edema which is chronic. Posterior tibial pulses well. Normal hip range of motion. There is no motor loss of the legs or feet. Negative straight leg raising bilaterally documented in this encounter [facility] 12-21-2022 History of Presen t illness Narrative Images from the original note were not included. [facility] [address] [facility] [address] [facility] [address] Dept: [phone] Dept Loc: [phone] Visit type: Established patient Reason for Visit: Diabetes (Follow up) Assessment and Plan 1. Type 2 diabetes mellitus with hyperglycemia, with long-term current use of insulin (HCC) - AMB POC HEMOGLOBIN A1C - Microalbumin / creatinine urine ratio - Comprehensive metabolic panel - insulin glargine (Nata VoraoStar) 300 UNIT/ML injection; Inject 80 Units under the skin every morning., Starting 12/21/2022, Until 02/03/2024, Normal 2. Acquired hypothyroidism - TSH - T4, free 3. Essential hypertension 4. Hyperlipidemia associated with type 2 diabetes mellitus (HCC) - Lipid panel Type 2 Diabetes mellitus with hyperglycemia, with long-term current use of insulin - Most Recent A1C is 5.9 Previous A1C 6.1%. - Goal A1C 7-7.5% - Current regimen: Toujeo 88 units every morning, regular insulin (purchases this from [employer]), metformin 500 mg daily with breakfast Ozempic 0.5 mg weekly - Current sugars: Well-controlled with blood sugars in target range the majority of the time. Patient having hyperglycemia occasionally. - Recommend : Continue Toujeo 80 units every morning, Continue regular insulin (purchases this from [employer]), metformin 500 mg daily with breakfast Continue to Ozempic 1 mg weekly Patient having very well controlled blood sugars the majority of time. Please see blood sugar log in media tab. Congratulated patient on blood sugar improvement. Patient is agreeable to decreasing insulin and increasing Ozempic to reduce insulin needs and have added benefit of more GLP-1 blood sugar control. - Diabetes health screen - Micro albumin -Labs ordered - Eye exam - Up to date 09/2022 - Feet exam - Up to date 05/2022 Hypothyroid: TSH and T4 levels stable. Continue LT4 112 mcg daily on empty stomach. HTN: Controlled at 112/58 on amlodipine and lisinopril prescribed by PCP HLP: Controlled LDL as of 02/2022 on simvastatin . Triglycerides have decreased from 283 back in 2021 to 171 as of 03/01/2022. Pt counseled about these recommendations. Pt voiced understanding. These recommendations made based on interpretation of available data (which may include FSBS, A1C, venous sampling, or data from pt recall). I reviewed: laboratory results reviewed: Yes radiographic reports reviewed: No I reviewed the radiographic images personally at the time of today's visit: No Pt was advised of the results. Records from outside facility/PCP office to be requested: No Scripts sent to pharmacy of pt choice: Yes No follow-ups on file. Subjective Diabetes Pertinent negatives for diabetes include no chest pain, no fatigue, no polydipsia, no polyphagia, no polyuria and no weakness. PCP is Alfredo Brooks DO Referring is PCP Previous Tester Vibrator Equipment: Initial [facility] office visit: 03/20/2017 Last office visit: 08/2022 DM Onset: 2017 Type of DM: 2 Family h/o DM = mother, MGM, sister Complications: Cardiovascular -- No Statin Use -- Yes Retinopathy -- Yes - moderate non proliferative retinopathy Last ADAM/Retina Eval: 07/2022 Dr. Conklin 09/2022(ophthalmology), Dr. Elise - Injections 11/2022 Nephropathy -- No IRINA/ARB Use -- Yes Polyneuropathy -- No Foot Exam: 05/2022 Dr. Marroquin (podiatry) sees on 09/21/22 Obesity -- Yes Other -- No Pt complaints include: Patient experiencing Constipation. Taking Dulcolax 1 time weekly and small glass of prune juice which is managing Constipation. Since last office visit denies new health problems, denies hospitalizations, and denies surgeries. Pt feels their blood sugars are better since ADARSH. Pt c/o sxs at today's visit: No Pt c/o sxs of hyperglycemia at today's visit: No Pt c/o SEs from Medications at today's visit: No Pt voices concerns about cost of medications at today's visit: No Hyperglycemia present: Yes Hypoglycemia present: No Patient has good glycemic control with the majority of blood sugars within good target range. Patient has had significant improvement with A1c since last visit. Current DM Medications: Toujeo 80 units every morning, regular insulin (purchases this from [employer]), metformin 500 mg daily with breakfast Ozempic 1 mg weekly Taking Medications w/o Missed Doses: Yes Log present: Yes Reviewed w/ pt: Yes Scanned into Media: Yes Following Diet for DM: Yes Diet improved If she is full, she stops eating Br: slices of toast, coffee and fruit Bowl of cereal L: not as hungry. Will eat sandwich (tuna or peanutbutter) Salad and water Dinner: salad , tuna , chicken , sandwich , pork chops , green beans , mashed potatoes , steak Snack: Patient not typically having evening snack. Water, tea with equal Following Exercise Regimen: Yes Walking a lot Stationary bike Previously Used DM Meds: Yes Metformin higher doses cause diarrhea humalog tresiba lantus vial levemir onglyza Current Thyroid Hormone Replacement Regimen: Medication: Current dosage: 112 mcg Frequency: Daily Missed doses: no Taking correctly: yes Estimated wt based dosing using today's wt: 171.2 Available TFTs: Lab Results Component Value Date TSH 2.28 09/14/2022 Family h/o thyroid dz: yes mother Family h/o DTC in 1st degree relatives: yes Previous neck/thyroid surgery: yes Personal h/o childhood XRT to head/neck/chest/body:no Previous use of thyroid hormone:yes Previous use of ATDs:no Recent CT scan w/ contrast in last 6-8 wks: no Recent use of glucocorticoids:no Use of OTC thyroid or iodine supplements: no Current use of biotin: no Current Use of Bcomplex Vitamins: no Review of Systems Constitutional: Negative for activity change, appetite change, chills, fatigue, fever and unexpected weight change. HENT: Negative for trouble swallowing and voice change. Eyes: Negative for visual disturbance. Respiratory: Negative for chest tightness and shortness of breath. Cardiovascular: Negative for chest pain, palpitations and leg swelling. Gastrointestinal: Positive for constipation (Related to Ozempic-controlled and manageable with laxative). Negative for abdominal pain, diarrhea, nausea and vomiting. Endocrine: Negative for polydipsia, polyphagia and polyuria. Genitourinary: Negative for difficulty urinating and dysuria. Skin: Negative for rash and wound. Neurological: Negative for weakness. Psychiatric/Behavioral: Negative for sleep disturbance. All other systems reviewed and are negative. An entire ROS was performed at the time of this encounter. Unless noted above in the HPI, the ROS is negative. Allergies Allergen Reactions Nsaids Rash Other reaction(s): Other (See Comments) HAYDE (Valente) Red itchy burning rash and ears swell Other reaction(s): Other (See Comments) Clavulanic Acid Other reaction(s): Rash Codeine Other reaction(s): Rash Niacin Amoxicillin-Pot Clavulanate Rash Lovastatin Rash Penicillins Rash Other reaction(s): Rash, U Other reaction(s): Rash Other reaction(s): Rash Sulfa Antibiotics Rash Other reaction(s): Rash Outpatient Medications Prior to Visit Medication Sig Dispense Refill acetaminophen (Tylenol) 500 MG tablet Take 1,000 mg by mouth in the morning and at bedtime. amLODIPine (Norvasc) 5 MG tablet Take 1 tablet (5 mg) by mouth daily for 90 doses. 90 tablet 0 cyanocobalamin (Vitamin B-12) 1000 MCG tablet Take 1,000 mcg by mouth daily. Glucose Blood (Blood Glucose Test) strip Use 4 times daily to check blood glucose E11.65 Please dispense strips that are covered by insurance hydroCHLOROthiazide (HYDRODiuril) 12.5 MG tablet Take 1 tablet (12.5 mg) by mouth daily. 90 tablet 0 insulin regular (HumuLIN R,NovoLIN R) 100 UNIT/ML injection 27 units bfast, 36 units lunch, 30 units dinner Strength: 100 UNIT/ML 10 mL 3 lisinopril 30 MG tablet Take 1 tablet (30 mg) by mouth daily. 90 tablet 1 Loratadine 10 MG capsule Take 10 mg by mouth in the morning. metFORMIN XR (Glucophage-XR) 500 MG 24 hr tablet Take 1 tablet by mouth daily (with breakfast). metoprolol tartrate (Lopressor) 50 MG tablet Take 1 tablet (50 mg) by mouth 2 times daily. 180 tablet 1 Misc. Devices misc Handicap placard omega-3 (Fish Oil) 1000 MG capsule Take 1,000 mg by mouth daily. omeprazole (PriLOSEC) [address] capsule Take 10 mg by mouth in the morning. semaglutide (Ozempic) 4 MG/3ML solution pen-injector Inject 1 mg under the skin 1 (one) time per week. 1 each 11 simvastatin (Zocor) 20 MG tablet Take 1 tablet (20 mg) by mouth Nightly. 90 tablet 0 thiamine (Vitamin B-1) 100 MG tablet Take 100 mg by mouth in the morning. traMADol (Ultram) 50 MG tablet Take 1 tablet (50 mg) by mouth every 8 hours as needed for severe pain (7-10) for up to 180 doses. 90 tablet 2 insulin glargine (Toujeo SoloStar) 300 UNIT/ML injection Inject 80 Units under the skin every morning. 135 mL 3 levothyroxine (Synthroid, Levoxyl) 112 MCG tablet Take 1 tablet (112 mcg) by mouth every morning. 90 tablet 1 METAMUCIL FIBER PO Take by mouth. oxymetazoline (Afrin) 0.05 % nasal spray Administer 2 sprays into each nostril every 12 hours as needed for congestion for up to 2 days. Do not use for more than 3 days. 30 mL 0 cholecalciferol (Vitamin D-3) 1.25 MG (41843 UT) capsule Take 1 capsule by mouth. glucose blood ([employer] Auto-Code Test) test strip Use 4 times daily to check blood glucose E11.65 Please dispense strips that are covered by insurance No facility-administered medications prior to visit. Past Medical History: Diagnosis Date Acute kidney injury (HCC) 2010 Valente consult - NSAIDs vs Viral gastro caused HAYDE Allergic rhinitis, cause unspecified Breast cancer screening 11/2021 Diabetic peripheral neuropathy (HCC) 04/2018 along with lumbar radiculopathy Diabetic retinopathy associated with type 2 diabetes mellitus (HCC) [place] Essential hypertension 2003 Family history of colon cancer sister and Father H/O colonoscopy 11/2018 Dr Andrews- IBS- due 2023 History of renal stone 03/[address] abd Hypothyroidism (acquired) 2003 Lumbar radiculopathy, chronic 2012 senior living Tramadol rx, MRI 01/14, Epidural NB - Dr. Lacey 2019 Nontoxic uninodular goiter 2011 Pure hypercholesterolemia Type 2 diabetes mellitus not at goal (CMS/HCC) (HCC) 1996 Mir Lux consult 2016 Social History Tobacco Use Smoking status: Never Smokeless tobacco: Never Substance Use Topics Alcohol use: Not Currently Alcohol/week: 0.0 standard drinks of alcohol Past Surgical History: Procedure Laterality Date CHOLECYSTECTOMY N/A 1999 COLONOSCOPY 08/2016 Darryl COLONOSCOPY 2011 [place] COLONOSCOPY 11/2018 Dr. Andrews- rech 2023 PARTIAL HYSTERECTOMY 2004 ovaries intact- TONSILLECTOMY (HISTORICAL) 1976 Family History Problem Relation Name Age of Onset Diabetes Mother age 44, smoker Coronary artery disease Mother Lung cancer Father age 74, smoker Diabetes Father Colon cancer Father Mental illness Sister Estefany acute psychosis, in home in [place], [place] Diabetes type II Sister Estefany Diabetes Sister Val diet cont Heart failure Sister Val COPD Sister Val ex smoker Lung cancer Sister Josette 67 of esophagus and small cell CA /18 Esophageal cancer Sister Josette Diabetes Sister Josette smoker and excess ETOH Colon cancer Sister Susana 68 alive age 74 Diabetes Sister Susana Other ([id number]) Brother 2 infants at ?etiol Other ([id number]) Brother still born Diabetes Maternal Grandmother Breast cancer Paternal Grandmother 58 Lung cancer Paternal Grandfather Objective BP 112/58 (BP Location: Right arm, Patient Position: Standing, BP Cuff Size: Large adult) Pulse 82 Ht 5' (1.524 m) Wt 227 lb (103 kg) BMI 44.33 kg/m Physical Exam Vitals and nursing note reviewed. Constitutional: General: She is not in acute distress. Appearance: Normal appearance. She is not ill-appearing. HENT: Head: Normocephalic and atraumatic. Eyes: Extraocular Movements: Extraocular movements intact. Pulmonary: Effort: Pulmonary effort is normal. No respiratory distress. Musculoskeletal: General: No swelling. Normal range of motion. Cervical back: Normal range of motion. Skin: General: Skin is warm and dry. Neurological: General: No focal deficit present. Mental Status: She is alert and oriented to person, place, and time. Psychiatric: Mood and Affect: Mood normal. Behavior: Behavior normal. Data Reviewed and Summarized Labs: No components found for: LABA1C No components found for: EAG Lab Results Component Value Date NA 136 10/21/2021 K 5.3 (H) 10/21/2021 CL 103 10/21/2021 CO2 21 03/01/2022 BUN 21 03/01/2022 CREATININE 0.69 03/01/2022 GLUCOSE 94 03/01/2022 CALCIUM 10.0 03/01/2022 Lab Results Component Value Date CHOL 160 09/02/2021 CHOL 172 02/09/2021 CHOL 166 12/25/2019 Lab Results Component Value Date TRIG 283 (A) 09/02/2021 TRIG 231 (A) 02/09/2021 TRIG 304 (A) 12/25/2019 Lab Results Component Value Date HDL 43 09/02/2021 HDL 42 02/09/2021 HDL 40 12/25/2019 No results found for: LDLCALC No results found for: VLDL Lab Results Component Value Date CHOLHDLRATIO 4 09/02/2021 CHOLHDLRATIO 4 02/09/2021 CHOLHDLRATIO 4 12/25/2019 No results found for: [id number] Imaging/Testing: Judi Santiago APRN - EZRA On this date, I have spent 30 minutes reviewing previous notes, test results and face to face with the patient discussing the diagnosis and importance of compliance with the treatment plan as well as documenting on the day of the visit. Portions of the information within this encounter were entered using an electronic dictation system. Best attempts were made to edit/proofread the information prior to note completion. Despite the review of information, some errors may remain. If there are questions related to the information contained within the note please contact the signing physician directly. documented in this encounter [facility] 12-13-2022 Telephone encount er Note Rescheduled pts appt on 03/30/23. Dr. Dewey collections professional. Pt is now scheduled on 04/20/23 at 8:40. No Mychart. Mailed letter to pts home address. [facility] 12-13-2022 Miscellaneous Notes Formattin g of this note might be different from the original. Rescheduled pts appt on 03/30/23. Dr. Dewey collections professional. Pt is now scheduled on 04/20/23 at 8:40. No Mychart. Mailed letter to pts home address. documented in this encounter [facility] 10-26-2022 Telephone encount er Note Requested information faxed to [facility] 10-26-2022 Miscellaneous Notes Formattin g of this note might be different from the original. Requested information faxed to [facility] Name of caller: Geraldine Contact phone number: [phone] Relationship to Patient: [facility] Provider: Dr Alfredo Brooks Practice: [facility] Chief Complaint/Reason for Call: Heri with [facility] called stating that she received letter certifying diabetes. Heri stated that she needs Office Visit note that addresses the diagnosis of diabetes. Please advise and fax to #[phone]. Best time of day caller can be reached: any Patient advised that office/PCP has 24-48 business hours to return their call: No documented in this encounter [facility] 10-26-2022 Telephone encount er Note Name of caller: Geraldine Contact phone number: [phone] Relationship to Patient: [facility] Provider: Dr Alfredo Brooks Practice: [facility] Chief Complaint/Reason for Call: Heri with [facility] called stating that she received letter certifying diabetes. Heri stated that she needs Office Visit note that addresses the diagnosis of diabetes. Please advise and fax to #[phone]. Best time of day caller can be reached: any Patient advised that office/PCP has 24-48 business hours to return their call: No [facility] 10-19-2022 Telephone encount er Note Rx loaded Last apt 09/27/22 [facility] 10-19-2022 Miscellaneous Notes Formattin g of this note might be different from the original. Rx loaded Last apt 09/27/22 documented in this encounter [facility] 09-27-2022 History of Presen t illness Narrative Images from the original note were not included. [facility] [address] [facility] [address] Visit type: Established Patient Reason for Visit: Follow-up (3 month med check) Assessment / Plan: Heri was seen today for follow-up. Diagnoses and all orders for this visit: Lumbar radiculopathy (Primary) Comments: Stable, continue tramadol and back stretches as needed Orders: - traMADol (Ultram) 50 MG tablet; Take 1 tablet (50 mg) by mouth every 8 hours as needed for severe pain (7-10) for up to 180 doses. Essential hypertension Morbid obesity (HCC) Comments: Stable, encourage walking as tolerated low-carb and low-fat meals and calorie restriction Type 2 diabetes mellitus with diabetic neuropathy, with long-term current use of insulin ([facility]/HCC) ([facility]) Comments: Improved. Praise given Subjective: Patient ID: Heri Toussaint is a 72 y.o. female. HPI better improved type II diabetic on insulin presents for tramadol refill for which she takes for severe lumbar spinal pain. History of right foot drop in 2018. Has marked improvement. She is getting her house prepared to be sold and recently did some extra packing and strained her right hip. No fall or trauma. No sciatica. Pain in the right lateral hip. No increase with Valsalva maneuvers. No sense of abdominal hernia. Review of Systems A1c down to normal. Blood pressure well. No cardiac or pulmonary concerns. No change in bowels or bladder. No weakness of the foot or toes. Tramadol is effective. No sedation or memory loss or constipation without med Allergies Allergen Reactions Nsaids Rash Other reaction(s): Other (See Comments) HAYDE (Valente) Red itchy burning rash and ears swell Other reaction(s): Other (See Comments) Clavulanic Acid Other reaction(s): Rash Codeine Other reaction(s): Rash Niacin Amoxicillin-Pot Clavulanate Rash Lovastatin Rash Penicillins Rash Other reaction(s): Rash, U Other reaction(s): Rash Other reaction(s): Rash Sulfa Antibiotics Rash Other reaction(s): Rash Current Outpatient Medications on File Prior to Visit Medication Sig Dispense Refill acetaminophen (Tylenol) 500 MG tablet Take 1,000 mg by mouth in the morning and at bedtime. amLODIPine (Norvasc) 10 MG tablet Take 0.5 tablets (5 mg) by mouth daily. 90 tablet 0 cholecalciferol (Vitamin D-3) 1.25 MG (03662 UT) capsule Take 1 capsule by mouth. cyanocobalamin (Vitamin B-12) 1000 MCG tablet Take 1,000 mcg by mouth. Glucose Blood (Blood Glucose Test) strip Use 4 times daily to check blood glucose E11.65 Please dispense strips that are covered by insurance glucose blood ([employer] Choice Auto-Code Test) test strip Use 4 times daily to check blood glucose E11.65 Please dispense strips that are covered by insurance hydroCHLOROthiazide (HYDRODiuril) 12.5 MG tablet Take 1 tablet (12.5 mg) by mouth daily. 90 tablet 0 insulin glargine (Toujeo SoloStar) 300 UNIT/ML injection Inject 80 Units under the skin every morning. 135 mL 3 insulin regular (HumuLIN R,NovoLIN R) 100 UNIT/ML injection 27 units bfast, 36 units lunch, 30 units dinner Strength: 100 UNIT/ML 10 mL 3 levothyroxine (Synthroid, Levoxyl) 112 MCG tablet Take 1 tablet (112 mcg) by mouth every morning. 90 tablet 1 lisinopril 30 MG tablet Take 1 tablet (30 mg) by mouth daily. 90 tablet 1 Loratadine 10 MG capsule Take 10 mg by mouth in the morning. METAMUCIL FIBER PO Take by mouth. metFORMIN XR (Glucophage-XR) 500 MG 24 hr tablet Take 1 tablet by mouth daily (with breakfast). metoprolol tartrate (Lopressor) 50 MG tablet Take 1 tablet (50 mg) by mouth 2 times daily. 180 tablet 1 Misc. Devices misc Handicap placard omega-3 (Fish Oil) 1000 MG capsule Take 1,000 mg by mouth. omeprazole (PriLOSEC) [address] capsule Take 10 mg by mouth in the morning. oxymetazoline (Afrin) 0.05 % nasal spray Administer 2 sprays into each nostril every 12 hours as needed for congestion for up to 2 days. Do not use for more than 3 days. 30 mL 0 semaglutide (Ozempic) 4 MG/3ML solution pen-injector Inject 1 mg under the skin 1 (one) time per week. 1 each 11 simvastatin (Zocor) 20 MG tablet Take 1 tablet (20 mg) by mouth Nightly. 90 tablet 0 thiamine (Vitamin B-1) 100 MG tablet Take 100 mg by mouth in the morning. [DISCONTINUED] traMADol (Ultram) 50 MG tablet Take 1 tablet (50 mg) by mouth every 8 hours as needed for severe pain (7-10) for up to 90 doses. 90 tablet 1 No current facility-administered medications on file prior to visit. Patient Active Problem List Diagnosis Morbid obesity (HCC) Hypothyroidism (acquired) Diabetic retinopathy associated with type 2 diabetes mellitus (HCC) Type 2 diabetes mellitus with diabetic neuropathy (CMS/HCC) (HCC) Essential hypertension Family history of colon cancer Allergic rhinitis Nontoxic uninodular goiter Pure hypercholesterolemia Lumbar radiculopathy History of renal stone Perennial allergic rhinitis Macrocytosis without anemia Leiomyoma of uterus, unspecified Diverticulitis of colon Hyperlipidemia Social History Tobacco Use Smoking status: Never Smokeless tobacco: Never Substance Use Topics Alcohol use: Not Currently Alcohol/week: 0.0 standard drinks of alcohol Past Surgical History: Procedure Laterality Date CHOLECYSTECTOMY N/A 1999 COLONOSCOPY 08/2016 Darryl COLONOSCOPY 2011 randy COLONOSCOPY 11/2018 Dr. Andrews- arnol 2023 PARTIAL HYSTERECTOMY 2004 ovaries intact- TONSILLECTOMY (HISTORICAL) 1976 Family History Problem Relation Name Age of Onset Diabetes Mother age 44, smoker Coronary artery disease Mother Lung cancer Father age 74, smoker Diabetes Father Colon cancer Father Mental illness Sister Estefany acute psychosis, in home in [place], [place] Diabetes type II Sister Estefany Diabetes Sister Val diet cont Heart failure Sister Val COPD Sister Val ex smoker Lung cancer Sister Josette 67 of esophagus and small cell CA 03/16 Esophageal cancer Sister Josette Diabetes Sister Josette smoker and excess ETOH Colon cancer Sister Susana 68 alive age 74 Diabetes Sister Susana Other ([id number]) Brother 2 infants at ?etiol Other ([id number]) Brother still born Diabetes Maternal Grandmother Breast cancer Paternal Grandmother 58 Lung cancer Paternal Grandfather Objective: BP 110/70 Pulse 76 Temp 36.3 C (97.3 F) (Temporal) Ht 5' (1.524 m) Wt 235 lb (107 kg) SpO2 96% BMI 45.90 kg/m Physical Exam She appears well. No abdominal hernias. No femoral hernias. Diminished range of motion with right hip external rotation otherwise lower extremity exam is normal. No pain with telescoping the femur into the hip. Pain is along the L5-S1 area. Nontender T-spine and LS-spine spinous processes. Negative straight leg raising bilaterally. There is no motor or sensory loss of the feet or toes. Toes downgoing no clonus. Reviewed past MRI of the LS spine. Reviewed recent lab work from nursing resident documented in this encounter [facility] 09-14-2022 History of Presen t illness Narrative Images from the original note were not included. [facility] [address] [facility] [address] [facility] [address] Dept: [phone] Dept Loc: [phone] Visit type: Established patient Reason for Visit: Diabetes (Follow up ) Assessment and Plan 1. Type 2 diabetes mellitus with hyperglycemia, with long-term current use of insulin ([facility]) ([facility]) - AMB POC HEMOGLOBIN A1C - insulin glargine (Toujeo SoloStar) 300 UNIT/ML injection; Inject 80 Units under the skin every morning., Starting 09/14/2022, Until Gauri 09/14/2023, Normal 2. Acquired hypothyroidism - T4, free - TSH 3. Essential hypertension 4. Hyperlipidemia associated with type 2 diabetes mellitus ([facility]) Type 2 Diabetes mellitus with hyperglycemia, with long-term current use of insulin - Most Recent A1C is 6.1%. Previous A1c 7.3% - Goal A1C 7-7.5% - Current regimen: Toujeo 88 units every morning, regular insulin (purchases this from [employer]), metformin 500 mg daily with breakfast Ozempic 0.5 mg weekly - Current sugars: Well-controlled with blood sugars in target range the majority of the time. Patient having hyperglycemia occasionally. - Recommend : Decrease Toujeo 80 units every morning, Decrease regular insulin (purchases this from [employer]), metformin 500 mg daily with breakfast Increase to Ozempic 1 mg weekly Patient having very well controlled blood sugars the majority of time. Please see blood sugar log in media tab. Congratulated patient on blood sugar improvement. Patient is agreeable to decreasing insulin and increasing Ozempic to reduce insulin needs and have added benefit of more GLP-1 blood sugar control. Patient to finish current doses of Ozempic at 0.5 mg (which she has 4 doses left) then will start Ozempic 1 mg and decrease insulin accordingly. Patient to contact office if she is experiencing lows or changes in blood sugars where she is having routine highs. - Diabetes health screen - Micro albumin -needs to be ordered at next appointment - Eye exam - Up to date - Feet exam - Up to date Hypothyroid: TSH slightly Elevated as of 10/21/2021. Patient reports labs were last ordered by PCP in September of last year. Patient to have labs drawn today to make sure that levothyroxine dose is adequate. Current dose of levothyroxine is 112 mcg daily. Patient taking on empty stomach first thing in the morning. HTN: Controlled at 110/60 on amlodipine and lisinopril prescribed by PCP HLP: Controlled LDL as of 02/2022 on simvastatin . Triglycerides have decreased from 283 back in 2021 to 171 as of 03/01/2022. Pt counseled about these recommendations. Pt voiced understanding. These recommendations made based on interpretation of available data (which may include FSBS, A1C, venous sampling, or data from pt recall). I reviewed: laboratory results reviewed: Yes radiographic reports reviewed: No I reviewed the radiographic images personally at the time of today's visit: No Pt was advised of the results. Records from outside facility/PCP office to be requested: No Scripts sent to pharmacy of pt choice: Yes No follow-ups on file. Subjective Diabetes Pertinent negatives for diabetes include no chest pain, no fatigue, no polydipsia, no polyphagia, no polyuria and no weakness. PCP is Alfredo Brooks DO Referring is PCP Previous Tester Vibrator Equipment: Initial [facility] office visit: 03/20/2017 Last office visit: 05/2022 DM Onset: 2017 Type of DM: 2 Family h/o DM = mother, MGM, sister Complications: Cardiovascular -- No Statin Use -- Yes Retinopathy -- Yes - moderate non proliferative retinopathy Last ADAM/Retina Eval: 07/2022 Dr. Conklin (ophthalmology), Dr. Elise - Injections 09/2022 Nephropathy -- No IRINA/ARB Use -- Yes Polyneuropathy -- No Foot Exam: 05/2022 Dr. Marroquin (podiatry) sees on 09/21/22 Obesity -- Yes Other -- No Pt complaints include: Patient experiencing Constipation. Taking Dulcolax 1 time weekly and small glass of prune juice which is managing Constipation. Since last office visit denies new health problems, denies hospitalizations, and denies surgeries. Pt feels their blood sugars are better since ADARSH. Pt c/o sxs at today's visit: No Pt c/o sxs of hyperglycemia at today's visit: No Pt c/o SEs from Medications at today's visit: No Pt voices concerns about cost of medications at today's visit: No Hyperglycemia present: Yes Hypoglycemia present: No Patient has good glycemic control with the majority of blood sugars within good target range. Patient has had significant improvement with A1c since last visit. Current DM Medications: Toujeo 80 units every morning, regular insulin (purchases this from [employer]), metformin 500 mg daily with breakfast Ozempic 1 mg weekly Taking Medications w/o Missed Doses: Yes Log present: Yes Reviewed w/ pt: Yes Scanned into Media: Yes Following Diet for DM: Yes Diet improved If she is full, she stops eating Br: slices of toast, coffee and fruit Bowl of cereal L: not as hungry. Will eat sandwich (tuna or peanutbutter) Salad and water Dinner: salad , tuna , chicken , sandwich , pork chops , green beans , mashed potatoes , steak Snack: Patient not typically having evening snack. Water, tea with equal Following Exercise Regimen: Yes Walking a lot Stationary bike Previously Used DM Meds: Yes Metformin higher doses cause diarrhea humalog tresiba lantus vial levemir onglyza Current Thyroid Hormone Replacement Regimen: Medication: Current dosage: 112 mcg Frequency: Daily Missed doses: no Taking correctly: yes Estimated wt based dosing using today's wt: 171.2 Available TFTs: Lab Results Component Value Date TSH 4.681 (H) 10/21/2021 Family h/o thyroid dz: yes mother Family h/o DTC in 1st degree relatives: yes Previous neck/thyroid surgery: yes Personal h/o childhood XRT to head/neck/chest/body:no Previous use of thyroid hormone:yes Previous use of ATDs:no Recent CT scan w/ contrast in last 6-8 wks: no Recent use of glucocorticoids:no Use of OTC thyroid or iodine supplements: no Current use of biotin: no Current Use of Bcomplex Vitamins: no Review of Systems Constitutional: Negative for activity change, appetite change, chills, fatigue, fever and unexpected weight change. HENT: Negative for trouble swallowing and voice change. Eyes: Negative for visual disturbance. Respiratory: Negative for chest tightness and shortness of breath. Cardiovascular: Negative for chest pain, palpitations and leg swelling. Gastrointestinal: Positive for constipation (Related to Ozempic-controlled and manageable with laxative). Negative for abdominal pain, diarrhea, nausea and vomiting. Endocrine: Negative for polydipsia, polyphagia and polyuria. Genitourinary: Negative for difficulty urinating and dysuria. Skin: Negative for rash and wound. Neurological: Negative for weakness. Psychiatric/Behavioral: Negative for sleep disturbance. All other systems reviewed and are negative. An entire ROS was performed at the time of this encounter. Unless noted above in the HPI, the ROS is negative. Allergies Allergen Reactions Nsaids Rash Other reaction(s): Other (See Comments) HAYDE (Valente) Red itchy burning rash and ears swell Other reaction(s): Other (See Comments) Clavulanic Acid Other reaction(s): Rash Codeine Other reaction(s): Rash Niacin Amoxicillin-Pot Clavulanate Rash Lovastatin Rash Penicillins Rash Other reaction(s): Rash, U Other reaction(s): Rash Other reaction(s): Rash Sulfa Antibiotics Rash Other reaction(s): Rash Outpatient Medications Prior to Visit Medication Sig Dispense Refill acetaminophen (Tylenol) 500 MG tablet Take 1,000 mg by mouth in the morning and at bedtime. amLODIPine (Norvasc) 10 MG tablet Take 0.5 tablets (5 mg) by mouth daily. 90 tablet 0 cholecalciferol (Vitamin D-3) 1.25 MG (60483 UT) capsule Take 1 capsule by mouth. cyanocobalamin (Vitamin B-12) 1000 MCG tablet Take 1,000 mcg by mouth. Glucose Blood (Blood Glucose Test) strip Use 4 times daily to check blood glucose E11.65 Please dispense strips that are covered by insurance glucose blood (Dickens Choice Auto-Code Test) test strip Use 4 times daily to check blood glucose E11.65 Please dispense strips that are covered by insurance hydroCHLOROthiazide (HYDRODiuril) 12.5 MG tablet Take 1 tablet (12.5 mg) by mouth daily. 90 tablet 0 levothyroxine (Synthroid, Levoxyl) 112 MCG tablet Take 1 tablet (112 mcg) by mouth every morning. 90 tablet 1 lisinopril 30 MG tablet Take 1 tablet (30 mg) by mouth daily. 90 tablet 1 Loratadine 10 MG capsule Take 10 mg by mouth in the morning. METAMUCIL FIBER PO Take by mouth. metFORMIN XR (Glucophage-XR) 500 MG 24 hr tablet Take 1 tablet by mouth daily (with breakfast). metoprolol tartrate (Lopressor) 50 MG tablet Take 1 tablet (50 mg) by mouth 2 times daily. 180 tablet 1 Misc. Devices misc Handicap placard omega-3 (Fish Oil) 1000 MG capsule Take 1,000 mg by mouth. omeprazole (PriLOSEC) [address] capsule Take 10 mg by mouth in the morning. simvastatin (Zocor) 20 MG tablet Take 1 tablet (20 mg) by mouth Nightly. 90 tablet 0 thiamine (Vitamin B-1) 100 MG tablet Take 100 mg by mouth in the morning. traMADol (Ultram) 50 MG tablet Take 1 tablet (50 mg) by mouth every 8 hours as needed for severe pain (7-10) for up to 90 doses. 90 tablet 1 insulin glargine (Toujeo SoloStar) 300 UNIT/ML injection Inject 88 Units under the skin every morning. 15 mL 1 insulin regular (HumuLIN R,NovoLIN R) 100 UNIT/ML injection 30 units bfast, 50 units lunch, 33 units dinner Strength: 100 UNIT/ML (Patient taking differently: 30 units bfast, 40 units lunch, 30 units dinner Strength: 100 UNIT/ML) 10 mL 3 semaglutide (Ozempic, 0.25 or 0.5 MG/DOSE,) 2 MG/3ML solution pen-injector Inject 0.5 mg under the skin 1 (one) time per week. 3 mL 1 oxymetazoline (Afrin) 0.05 % nasal spray Administer 2 sprays into each nostril every 12 hours as needed for congestion for up to 2 days. Do not use for more than 3 days. 30 mL 0 No facility-administered medications prior to visit. Past Medical History: Diagnosis Date Acute kidney injury (CMS/HCC) ([facility]) 2010 [facility] consult - NSAIDs vs Viral gastro caused HAYDE Allergic rhinitis, cause unspecified Breast cancer screening 11/2021 Diabetic peripheral neuropathy (CMS/HCC) ([facility]) 04/2018 along with lumbar radiculopathy Diabetic retinopathy associated with type 2 diabetes mellitus (HCC) Seng Essential hypertension 2003 Family history of colon cancer sister and Father H/O colonoscopy 11/2018 Dr Andrews- IBS- due 2023 History of renal stone 03/[address] abd Hypothyroidism (acquired) 2003 Lumbar radiculopathy, chronic 2012 senior living Tramadol rx, MRI 01/14, Epidural NB - Dr. Lacey 2019 Nontoxic uninodular goiter 2011 Pure hypercholesterolemia Type 2 diabetes mellitus not at goal (CMS/HCC) (HCC) 1996 [facility] consult 2016 Social History Tobacco Use Smoking status: Never Smokeless tobacco: Never Substance Use Topics Alcohol use: Not Currently Alcohol/week: 0.0 standard drinks of alcohol Past Surgical History: Procedure Laterality Date CHOLECYSTECTOMY N/A 1999 COLONOSCOPY 08/2016 Darryl COLONOSCOPY 2011 [facility] COLONOSCOPY 11/2018 Dr. Andrews- rech 2023 PARTIAL HYSTERECTOMY 2004 ovaries intact- TONSILLECTOMY (HISTORICAL) 1976 Family History Problem Relation Name Age of Onset Diabetes Mother age 44, smoker Coronary artery disease Mother Lung cancer Father age 74, smoker Diabetes Father Colon cancer Father Mental illness Sister Estefany acute psychosis, in home in [place], [place] Diabetes type II Sister Estefany Diabetes Sister Val diet cont Heart failure Sister Val COPD Sister Val ex smoker Lung cancer Sister Josette 67 of esophagus and small cell CA 03/16 Esophageal cancer Sister Josette Diabetes Sister Josette smoker and excess ETOH Colon cancer Sister Susana 68 alive age 74 Diabetes Sister Susana Other ([id number]) Brother 2 infants at ?etiol Other ([id number]) Brother still born Diabetes Maternal Grandmother Breast cancer Paternal Grandmother 58 Lung cancer Paternal Grandfather Objective BP 110/60 Pulse 73 Ht 5' (1.524 m) Wt 235 lb 12.8 oz (107 kg) BMI 46.05 kg/m Physical Exam Constitutional: General: She is not in acute distress. Appearance: Normal appearance. She is not ill-appearing. HENT: Head: Normocephalic and atraumatic. Eyes: Extraocular Movements: Extraocular movements intact. Cardiovascular: Rate and Rhythm: Normal rate and regular rhythm. Heart sounds: No murmur heard. Pulmonary: Effort: Pulmonary effort is normal. No respiratory distress. Musculoskeletal: General: No swelling. Normal range of motion. Cervical back: Normal range of motion. Skin: General: Skin is warm and dry. Neurological: General: No focal deficit present. Mental Status: She is alert and oriented to person, place, and time. Psychiatric: Mood and Affect: Mood normal. Behavior: Behavior normal. Data Reviewed and Summarized Labs: No components found for: LABA1C No components found for: EAG Lab Results Component Value Date NA 136 10/21/2021 K 5.3 (H) 10/21/2021 CL 103 10/21/2021 CO2 21 03/01/2022 BUN 21 03/01/2022 CREATININE 0.69 03/01/2022 GLUCOSE 94 03/01/2022 CALCIUM 10.0 03/01/2022 Lab Results Component Value Date CHOL 160 09/02/2021 CHOL 172 02/09/2021 CHOL 166 12/25/2019 Lab Results Component Value Date TRIG 283 (A) 09/02/2021 TRIG 231 (A) 02/09/2021 TRIG 304 (A) 12/25/2019 Lab Results Component Value Date HDL 43 09/02/2021 HDL 42 02/09/2021 HDL 40 12/25/2019 No results found for: LDLCALC No results found for: VLDL Lab Results Component Value Date CHOLHDLRATIO 4 09/02/2021 CHOLHDLRATIO 4 02/09/2021 CHOLHDLRATIO 4 12/25/2019 No results found for: [id number] Imaging/Testing: MARIANELA Burgos CNP On this date, I have spent 30 minutes reviewing previous notes, test results and face to face with the patient discussing the diagnosis and importance of compliance with the treatment plan as well as documenting on the day of the visit. Portions of the information within this encounter were entered using an electronic dictation system. Best attempts were made to edit/proofread the information prior to note completion. Despite the review of information, some errors may remain. If there are questions related to the information contained within the note please contact the signing physician directly. documented in this encounter [facility] 09-14-2022 Instructions MARIANELA Thomas CNP - 09/14/2022 11:30 AM EDT Current DM Medications: Toujeo 80 units every morning, regular insulin (purchases this from [facility]), metformin 500 mg daily with breakfast Ozempic 1 mg weekly documented in this encounter [facility] 08-02-2022 Telephone encount er Note Called the patient and let her know all info stated by lakshmi villanueva, I am also mailing blood glucose logs to the patient. [facility] 08-02-2022 Miscellaneous Notes Formattin g of this note might be different from the original. Called the patient and let her know all info stated by lakshmi villanueva, I am also mailing blood glucose logs to the patient. Reviewed. Recommend that she decrease Toujeo to 88 units daily. Continue regular insulin dosing as being done. Please have her keep BG log and send for review in 2 weeks. Thank you! Images from the original note were not included. I called the patient and she stated that she has only had a couple of lows in the last two weeks. She thinks that since we added ozempic 0.5 mg weekly to her regimen she has been experiencing more lows than before. She takes 94 units of toujeo religiously. For her humulin mealtime insulin she adjusts how much she can take based off of what her sugars are. For the meal time insulin she takes anywhere from 20-25 units before breakfast, 40-45 units before lunch and 28-33 units before dinner. Her fast blood sugar was 54 units this morning, and Monday of last week she had a fasting bg of 79. She would like a call back letting her know if she needs to make any adjustments. She also stated that sometimes she does not take her meal time because she is afraid her bg will drop too low , please advise. When calling to set up delivery for Heri's medications, Heri told our environmental field team member that she has been experiencing blood sugars in the 50s every other day or so. She has been adjusting her insulin regimen on her own to try to prevent these lows. I talked to her about always contacting the provider's office if she is experiencing lows and never trying to adjust her own insulin doses. I also talked with her about how to manage lows by using the 15-15 rule. I let Heri know to please call the provider's office immediately to provide more information about her lows and to determine appropriate adjustments to her regimen with her provider. documented in this encounter [facility] 08-02-2022 Telephone encount er Note Reviewed. Recommend that she decrease Toujeo to 88 units daily. Continue regular insulin dosing as being done. Please have her keep BG log and send for review in 2 weeks. Thank you! [facility] 08-02-2022 Telephone encount er Note Images from the original note were not included. I called the patient and she stated that she has only had a couple of lows in the last two weeks. She thinks that since we added ozempic 0.5 mg weekly to her regimen she has been experiencing more lows than before. She takes 94 units of toujeo religiously. For her humulin mealtime insulin she adjusts how much she can take based off of what her sugars are. For the meal time insulin she takes anywhere from 20-25 units before breakfast, 40-45 units before lunch and 28-33 units before dinner. Her fast blood sugar was 54 units this morning, and Monday of last week she had a fasting bg of 79. She would like a call back letting her know if she needs to make any adjustments. She also stated that sometimes she does not take her meal time because she is afraid her bg will drop too low , please advise. [facility] 08-02-2022 Telephone encount er Note When calling to set up delivery for Heri's medications, Heri told our environmental field team member that she has been experiencing blood sugars in the 50s every other day or so. She has been adjusting her insulin regimen on her own to try to prevent these lows. I talked to her about always contacting the provider's office if she is experiencing lows and never trying to adjust her own insulin doses. I also talked with her about how to manage lows by using the 15-15 rule. I let Heri know to please call the provider's office immediately to provide more information about her lows and to determine appropriate adjustments to her regimen with her provider. [facility] 08-01-2022 Telephone encount er Note Sent rx request to dr graham [facility] 08-01-2022 Miscellaneous Notes Formattin g of this note might be different from the original. Sent rx request to dr graham documented in this encounter [facility] 07-04-2022 Telephone encount er Note Rx loaded Last ov 05/31/22 Next ov 09/27/22 [facility] 07-04-2022 Miscellaneous Notes Formattin g of this note might be different from the original. Rx loaded Last ov 05/31/22 Next ov 09/27/22 Medication name: traMADol (Ultram) 50 MG tablet Start: 05/12/2022 Ord/Sold: 05/26/2022 (O) Report Adh: Taking: Long-term: Med Dose History Edit Ordered on: 05/26/2022 Authorized by: PROVIDER, HISTORICAL If this is a controlled substance do you receive this or any other controlled medication from any other doctor or facility: N/A Date of last office visit: not found Date of next office visit: 09/27/2022 Date of last refill: (see medication tab): 05/12/2021 Updated/Validated preferred pharmacy: Yes Patient instructed to contact the pharmacy prior to picking up the medication: Yes documented in this encounter [facility] 07-04-2022 Telephone encount er Note Medication name: traMADol (Ultram) 50 MG tablet Start: 05/12/2022 Ord/Sold: 05/26/2022 (O) Report Adh: Taking: Long-term: Med Dose History Edit Ordered on: 05/26/2022 Authorized by: PROVIDER, HISTORICAL If this is a controlled substance do you receive this or any other controlled medication from any other doctor or facility: N/A Date of last office visit: not found Date of next office visit: 09/27/2022 Date of last refill: (see medication tab): 05/12/2021 Updated/Validated preferred pharmacy: Yes Patient instructed to contact the pharmacy prior to picking up the medication: Yes [facility] 06-23-2022 Telephone encount er Note Name of caller: Heri Contact phone number: [phone] Relationship to Patient: patient Provider: Yobany Practice: ent Chief Complaint/Reason for Call: patient called in stating that they need to cancel their appointment that was on 07/06/22 they do not want to reschedule at this time. Please advise and thank you Best time of day caller can be reached: any Patient advised that office/PCP has 24-48 business hours to return their call: N/A [facility] 06-23-2022 Miscellaneous Notes Formattin g of this note might be different from the original. Name of caller: Heri Contact phone number: [phone] Relationship to Patient: patient Provider: Yobany Practice: ent Chief Complaint/Reason for Call: patient called in stating that they need to cancel their appointment that was on 07/06/22 they do not want to reschedule at this time. Please advise and thank you Best time of day caller can be reached: any Patient advised that office/PCP has 24-48 business hours to return their call: N/A documented in this encounter [facility] 06-02-2022 History of Presen t illness Narrative Images from the original note were not included. [facility] [address] [facility] [address] [facility] [address] Dept: [phone] Dept Loc: [phone] Visit type: Established patient Reason for Visit: Follow-up and Diabetes Assessment and Plan 1. Type 2 diabetes mellitus with diabetic neuropathy, with long-term current use of insulin ([facility]) ([facility]) - AMB POC HEMOGLOBIN A1C 2. 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 Essential hypertension 4. Hyperlipidemia, unspecified hyperlipidemia type Type 2 Diabetes mellitus with neuropathy , retinopathy and correction insulin use: - Most Recent A1C is 7.3% - Goal A1C 7-7.5% - Current regimen: Toujeo 94 units every morning, regular insulin 30/40/30 (purchases this from [facility]), metformin 500 mg twice a day - Current sugars: are fairly well controlled with mild hyperglycemia related to diet - Recommend : continue current doses of insulin. Given diarrhea with metformin - lower frequency to 500 mg daily with breakfast only - will enquire about cost of GLP 1 agonist ( No contraindications) - Diabetes health screen - Micro albumin - up to date - Eye exam - Up to date - Feet exam - Up to date 2. HTN: Controlled at 128/72 on amlodipine and lisinopril prescribed by PCP 3. HLP: Controlled LDL as of 02/2022 on simvastatin . Tg levels have much improved 4. Hypothyroid: TSH slightly Elevated as of 10/21/2021. Patient reports PCP managing Thyroid and will follow up with PCP. Pt counseled about these recommendations. Pt voiced understanding. These recommendations made based on interpretation of available data (which may include FSBS, A1C, venous sampling, or data from pt recall). I reviewed: laboratory results reviewed: Yes radiographic reports reviewed: No I reviewed the radiographic images personally at the time of today's visit: No Pt was advised of the results. Records from outside facility/PCP office to be requested: No Scripts sent to pharmacy of pt choice: Yes Follow up in about 3 months (around 09/01/2022). Subjective Diabetes PCP is Alfredo Brooks DO Referring is PCP Previous Tester Vibrator Equipment: Initial [facility] office visit: 03/20/2017 Last office visit: 02/2022 ER Visit in 04/2022 epistaxis DM Onset: 2017 Type of DM: 2 Family h/o DM = mother, MGM, sister Complications: Cardiovascular -- No Statin Use -- Yes Retinopathy -- Yes - moderate non proliferative retinopathy Last ADAM/Retina Eval: 03/2022 Nephropathy -- No IRINA/ARB Use -- Yes Polyneuropathy -- No Foot Exam: 05/2022 Obesity -- Yes Other -- No Pt complaints include: diarrhea - and requesting to see if metformin can be lowered to once a day Since last office visit denies new health problems, denies hospitalizations, and denies surgeries. Pt feels their blood sugars are better since ADARSH. Pt c/o sxs at today's visit: No Pt c/o sxs of hyperglycemia at today's visit: No Pt c/o SEs from Medications at today's visit: No Pt voices concerns about cost of medications at today's visit: No Hyperglycemia present: Yes Hypoglycemia present: No Overall sugars are well controlled , occasional hyperglycemia on some days related to diet ( consumption of sweets during weddings/parties) Current DM Medications: Toujeo 94 units at 6 am Regular 30/40/30 Metformin 500 mg bid Taking Medications w/o Missed Doses: Yes Log present: Yes Reviewed w/ pt: Yes Scanned into Media: Yes Following Diet for DM: Yes Br: Egg, 2 slices of toast, coffee and fruit or 1 pancake + fruit , coffee or Bowl of cereal and piece of toast coffee with cream L: not as hungry. Will eat sandwich (tuna or peanutbutter) 10 chips and water Dinner: salad , tuna , chicken , sandwich , pork chops , green beans , mashed potatoes , steak Snack: toast or popcorn, or chips, or apples Water, tea with equal Following Exercise Regimen: Yes Walking a lot Stationary bike Previously Used DM Meds: Yes Metformin higher doses cause diarrhea humalog tresiba lantus vial levemir onglyza Review of Systems Gastrointestinal: Positive for diarrhea. Negative for nausea and vomiting. Genitourinary: Negative for dysuria. An entire ROS was performed at the time of this encounter. Unless noted above in the HPI, the ROS is negative. Allergies Allergen Reactions Nsaids Rash Other reaction(s): Other (See Comments) HAYDE (Valente) Red itchy burning rash and ears swell Other reaction(s): Other (See Comments) Clavulanic Acid Other reaction(s): Rash Codeine Other reaction(s): Rash Niacin Amoxicillin-Pot Clavulanate Rash Lovastatin Rash Penicillins Rash Other reaction(s): Rash, U Other reaction(s): Rash Other reaction(s): Rash Sulfa Antibiotics Rash Other reaction(s): Rash Outpatient Medications Prior to Visit Medication Sig Dispense Refill acetaminophen (Tylenol) 500 MG tablet Take 1,000 mg by mouth in the morning and at bedtime. amLODIPine (Norvasc) 10 MG tablet Take 1 tablet (10 mg) by mouth daily. (Patient taking differently: Take 5 mg by mouth daily.) 90 tablet 0 cholecalciferol (Vitamin D-3) 1.25 MG (98021 UT) capsule Take 1 capsule by mouth. cyanocobalamin (Vitamin B-12) 1000 MCG tablet Take 1,000 mcg by mouth. Glucose Blood (Blood Glucose Test) strip Use 4 times daily to check blood glucose E11.65 Please dispense strips that are covered by insurance glucose blood ([employer] Choice Auto-Code Test) test strip Use 4 times daily to check blood glucose E11.65 Please dispense strips that are covered by insurance hydroCHLOROthiazide (HYDRODiuril) 12.5 MG tablet Take 1 tablet (12.5 mg) by mouth daily. 90 tablet 0 insulin glargine (Toujeo SoloStar) 300 UNIT/ML injection Inject 94 Units under the skin. insulin regular (HumuLIN R,NovoLIN R) 100 UNIT/ML injection 30 units bfast, 50 units lunch, 33 units dinner Strength: 100 UNIT/ML (Patient taking differently: 30 units bfast, 40 units lunch, 30 units dinner Strength: 100 UNIT/ML) 10 mL 3 levothyroxine (Synthroid, Levoxyl) 112 MCG tablet Take 1 tablet (112 mcg) by mouth every morning. 90 tablet 1 lisinopril 30 MG tablet Take 1 tablet (30 mg) by mouth daily. 90 tablet 1 Loratadine 10 MG capsule Take 10 mg by mouth in the morning. METAMUCIL FIBER PO Take by mouth. metFORMIN XR (Glucophage-XR) 500 MG 24 hr tablet Take 1 tablet by mouth daily (with breakfast). metoprolol tartrate (Lopressor) 50 MG tablet Take 1 tablet (50 mg) by mouth 2 times daily. 180 tablet 1 Misc. Devices misc Handicap placard omega-3 (Fish Oil) 1000 MG capsule Take 1,000 mg by mouth. omeprazole (PriLOSEC) [address] capsule Take 10 mg by mouth in the morning. thiamine (Vitamin B-1) 100 MG tablet Take 100 mg by mouth in the morning. traMADol (Ultram) 50 MG tablet atorvastatin (Lipitor) 20 MG tablet Take by mouth. oxymetazoline (Afrin) 0.05 % nasal spray Administer 2 sprays into each nostril every 12 hours as needed for congestion for up to 2 days. Do not use for more than 3 days. 30 mL 0 simvastatin (Zocor) 20 MG tablet Take 1 tablet (20 mg) by mouth Nightly. 90 tablet 1 Aspirin-Calcium Carbonate 81-777 MG tablet Take 81 mg by mouth. fluticasone (Flonase) 50 MCG/ACT nasal spray Administer 1 spray into affected nostril(s). No facility-administered medications prior to visit. Past Medical History: Diagnosis Date Acute kidney injury (CMS/HCC) ([facility]) 2010 [facility] consult - NSAIDs vs Viral gastro caused HAYDE Allergic rhinitis, cause unspecified Breast cancer screening 11/2021 Diabetic peripheral neuropathy (CMS/HCC) ([facility]) 04/2018 along with lumbar radiculopathy Diabetic retinopathy associated with type 2 diabetes mellitus (HCC) Seng Essential hypertension 2003 Family history of colon cancer sister and Father H/O colonoscopy 11/2018 Dr Andrews- IBS- due 2023 History of renal stone 03/[address] abd Hypothyroidism (acquired) 2004 Lumbar radiculopathy, chronic 2012 senior living Tramadol rx, MRI 01/14, Epidural NB - Dr. Lacey 2019 Nontoxic uninodular goiter 2011 Pure hypercholesterolemia Type 2 diabetes mellitus not at goal (CMS/HCC) (HCC) 1996 [facility] consult 2016 Social History Tobacco Use Smoking status: Never Smokeless tobacco: Never Substance Use Topics Alcohol use: Not Currently Alcohol/week: 0.0 standard drinks Past Surgical History: Procedure Laterality Date CHOLECYSTECTOMY N/A 1999 COLONOSCOPY 08/2016 Darryl COLONOSCOPY 2011 [facility] COLONOSCOPY 11/2018 Dr. Andrews- rech 2023 PARTIAL HYSTERECTOMY 2005 ovaries intact- TONSILLECTOMY (HISTORICAL) 1976 Family History Problem Relation Name Age of Onset Diabetes Mother age 44, smoker Coronary artery disease Mother Lung cancer Father age 74, smoker Diabetes Father Colon cancer Father Mental illness Sister Estefany acute psychosis, in home in [place], [place] Diabetes type II Sister Estefany Diabetes Sister Val diet cont Heart failure Sister Val COPD Sister Val ex smoker Lung cancer Sister Josette 67 of esophagus and small cell CA 03/16 Esophageal cancer Sister Josette Diabetes Sister Josette smoker and excess ETOH Colon cancer Sister Susana 68 alive age 74 Diabetes Sister Susana Other ([id number]) Brother 2 infants at ?etiol Other ([id number]) Brother still born Diabetes Maternal Grandmother Breast cancer Paternal Grandmother 58 Lung cancer Paternal Grandfather Objective BP 128/72 Pulse 87 Ht 5' (1.524 m) Wt 247 lb 3.2 oz (112 kg) BMI 48.28 kg/m Physical Exam Constitutional: General: She is not in acute distress. Appearance: Normal appearance. She is not ill-appearing. HENT: Head: Normocephalic and atraumatic. Eyes: Extraocular Movements: Extraocular movements intact. Cardiovascular: Rate and Rhythm: Normal rate and regular rhythm. Heart sounds: No murmur heard. Pulmonary: Effort: Pulmonary effort is normal. No respiratory distress. Musculoskeletal: General: No swelling. Normal range of motion. Cervical back: Normal range of motion. Skin: General: Skin is warm and dry. Neurological: General: No focal deficit present. Mental Status: She is alert and oriented to person, place, and time. Psychiatric: Mood and Affect: Mood normal. Behavior: Behavior normal. Data Reviewed and Summarized Labs: No components found for: LABA1C No components found for: EAG Lab Results Component Value Date NA 136 10/21/2021 K 5.3 (H) 10/21/2021 CL 103 10/21/2021 CO2 21 03/01/2022 BUN 21 03/01/2022 CREATININE 0.69 03/01/2022 GLUCOSE 94 03/01/2022 CALCIUM 10.0 03/01/2022 Lab Results Component Value Date CHOL 160 09/02/2021 CHOL 172 02/09/2021 CHOL 166 12/25/2019 Lab Results Component Value Date TRIG 283 (A) 09/02/2021 TRIG 231 (A) 02/09/2021 TRIG 304 (A) 12/25/2019 Lab Results Component Value Date HDL 43 09/02/2021 HDL 42 02/09/2021 HDL 40 12/25/2019 No results found for: LDLCALC No results found for: VLDL Lab Results Component Value Date CHOLHDLRATIO 4 09/02/2021 CHOLHDLRATIO 4 02/09/2021 CHOLHDLRATIO 4 12/25/2019 No results found for: [id number] Imaging/Testing: Servando Dewey MD Portions of the information within this encounter were entered using an electronic dictation system. Best attempts were made to edit/proofread the information prior to note completion. Despite the review of information, some errors may remain. If there are questions related to the information contained within the note please contact the signing physician directly. documented in this encounter [facility] 05-31-2022 History of Presen t illness Narrative Images from the original note were not included. [facility] [address] [place] [address] [phone] Visit type: Established Patient Reason for Visit: Follow-up (3 month med check) Assessment / Plan: Heri was seen today for follow-up. Diagnoses and all orders for this visit: Essential hypertension (Primary) Comments: Stable, continue metoprolol and lisinopril Lumbar radiculopathy Comments: Stable, continue tramadol, OARRS report done, Type 2 diabetes mellitus with diabetic neuropathy, with long-term current use of insulin ([facility]) ([facility]) Other orders - Diabetes Foot Exam Subjective: Patient ID: Heri Toussaint is a 72 y.o. female. HPI better controlled type II diabetic on insulin with history of neuropathy and lumbar disc disease presents for tramadol refill. Meds 3 times daily have been helpful. No new concerns. A1c is improving We will be getting lab per endocrinology soon Review of Systems no recent earache sore throat or cough. No chest pain or palpitations. Eating and voiding well. Due for mammogram in summer and colonoscopy next year. No change in quality of back pain. No recent falls or injury besides a contusion in the right knee a few weeks ago. Healing without difficulty. No bowel or bladder incontinence. No nocturnal pain. Allergies Allergen Reactions Nsaids Rash Other reaction(s): Other (See Comments) HAYDE (Valente) Red itchy burning rash and ears swell Other reaction(s): Other (See Comments) Clavulanic Acid Other reaction(s): Rash Codeine Other reaction(s): Rash Niacin Amoxicillin-Pot Clavulanate Rash Lovastatin Rash Penicillins Rash Other reaction(s): Rash, U Other reaction(s): Rash Other reaction(s): Rash Sulfa Antibiotics Rash Other reaction(s): Rash Current Outpatient Medications on File Prior to Visit Medication Sig Dispense Refill acetaminophen (Tylenol) 500 MG tablet Take 1,000 mg by mouth in the morning and at bedtime. amLODIPine (Norvasc) 10 MG tablet Take 1 tablet (10 mg) by mouth daily. 90 tablet 0 atorvastatin (Lipitor) 20 MG tablet Take by mouth. cholecalciferol (Vitamin D-3) 1.25 MG (20540 UT) capsule Take 1 capsule by mouth. cyanocobalamin (Vitamin B-12) 1000 MCG tablet Take 1,000 mcg by mouth. fluticasone (Flonase) 50 MCG/ACT nasal spray Administer 1 spray into affected nostril(s). Glucose Blood (Blood Glucose Test) strip Use 4 times daily to check blood glucose E11.65 Please dispense strips that are covered by insurance glucose blood (Dickens Choice Auto-Code Test) test strip Use 4 times daily to check blood glucose E11.65 Please dispense strips that are covered by insurance hydroCHLOROthiazide (HYDRODiuril) 12.5 MG tablet Take 1 tablet (12.5 mg) by mouth daily. 90 tablet 0 insulin glargine (Toujeo SoloStar) 300 UNIT/ML injection Inject 94 Units under the skin. insulin regular (HumuLIN R,NovoLIN R) 100 UNIT/ML injection 30 units bfast, 50 units lunch, 33 units dinner Strength: 100 UNIT/ML 10 mL 3 levothyroxine (Synthroid, Levoxyl) 112 MCG tablet Take 1 tablet (112 mcg) by mouth every morning. 90 tablet 1 lisinopril 30 MG tablet Take 1 tablet (30 mg) by mouth daily. 90 tablet 1 Loratadine 10 MG capsule Take 10 mg by mouth in the morning. METAMUCIL FIBER PO Take by mouth. metFORMIN XR (Glucophage-XR) 500 MG 24 hr tablet Take 1 tablet by mouth in the morning and at bedtime. metoprolol tartrate (Lopressor) 50 MG tablet Take 1 tablet (50 mg) by mouth 2 times daily. 180 tablet 1 Misc. Devices misc Handicap placard omega-3 (Fish Oil) 1000 MG capsule Take 1,000 mg by mouth. omeprazole (PriLOSEC) [address] capsule Take 10 mg by mouth in the morning. oxymetazoline (Afrin) 0.05 % nasal spray Administer 2 sprays into each nostril every 12 hours as needed for congestion for up to 2 days. Do not use for more than 3 days. 30 mL 0 simvastatin (Zocor) 20 MG tablet Take 1 tablet (20 mg) by mouth Nightly. 90 tablet 1 thiamine (Vitamin B-1) 100 MG tablet Take 100 mg by mouth in the morning. [DISCONTINUED] Aspirin-Calcium Carbonate 81-777 MG tablet Take 81 mg by mouth. No current facility-administered medications on file prior to visit. Patient Active Problem List Diagnosis Morbid obesity (HCC) Hypothyroidism (acquired) Diabetic retinopathy associated with type 2 diabetes mellitus (HCC) Type 2 diabetes mellitus with diabetic neuropathy (CMS/HCC) (HCC) Essential hypertension Family history of colon cancer Allergic rhinitis Nontoxic uninodular goiter Pure hypercholesterolemia Lumbar radiculopathy History of renal stone Perennial allergic rhinitis Type 2 diabetes mellitus not at goal (CMS/HCC) (HCC) Macrocytosis without anemia Excessive or frequent menstruation Leiomyoma of uterus, unspecified Type 1 diabetes mellitus (HCC) Chest pain Acute pharyngitis Diverticulitis of colon Epistaxis Social History Tobacco Use Smoking status: Never Smokeless tobacco: Never Substance Use Topics Alcohol use: Not Currently Alcohol/week: 0.0 standard drinks Past Surgical History: Procedure Laterality Date CHOLECYSTECTOMY N/A 1999 COLONOSCOPY 08/2016 Darryl COLONOSCOPY 2011 randy COLONOSCOPY 11/2018 Dr. Andrews- rech 2023 PARTIAL HYSTERECTOMY 2004 ovaries intact- TONSILLECTOMY (HISTORICAL) 1976 Family History Problem Relation Name Age of Onset Diabetes Mother age 44, smoker Coronary artery disease Mother Lung cancer Father age 74, smoker Diabetes Father Colon cancer Father Mental illness Sister Estefany acute psychosis, in home in [place], [place] Diabetes type II Sister Estefany Diabetes Sister Val diet cont Heart failure Sister Val COPD Sister Val ex smoker Lung cancer Sister Josette 67 of esophagus and small cell CA 03/16 Esophageal cancer Sister Josette Diabetes Sister Josette smoker and excess ETOH Colon cancer Sister Susana 68 alive age 74 Diabetes Sister Susana Other ([id number]) Brother 2 infants at ?etiol Other ([id number]) Brother still born Diabetes Maternal Grandmother Breast cancer Paternal Grandmother 58 Lung cancer Paternal Grandfather Objective: BP 110/65 Pulse 71 Temp 36.5 C (97.7 F) (Temporal) Ht 5' (1.524 m) Wt 246 lb (112 kg) SpO2 95% BMI 48.04 kg/m Physical Exam recheck blood pressure excellent. No carotid bruits neck masses or change in thyroid goiter. Heart is regular without murmurs or S3. Lungs are clear. Abdomen obese nontender without masses pain or ascites. Extremities have chronic trace edema but no motor or sensory loss of the legs or feet or toes. Pulses are fair. No skin breakdowns. Sensation intact. documented in this encounter [facility] 05-17-2022 Telephone encount er Note Message released to patient as written. Patient's further questions if applicable: I am calling from Alfredo Brooks DO's office, following up after your recent ED visit. Calling to see how your symptoms are and to see if you were able to find an ENT appointment closer to home? Please let the office know if you were able to do so. Thank you. Pt states Er gave a spray to spray up the nose. Pts nose beelds have stopped. Pt confirmed appointment on 05/31/22. Pt also states yes did find a ENT closer to home. Were all questions from office addressed or relayed to the patient from encounter: Yes [facility] 05-17-2022 Miscellaneous Notes Formattin g of this note might be different from the original. Message released to patient as written. Patient's further questions if applicable: I am calling from Alfredo Brooks DO's office, following up after your recent ED visit. Calling to see how your symptoms are and to see if you were able to find an ENT appointment closer to home? Please let the office know if you were able to do so. Thank you. Pt states Er gave a spray to spray up the nose. Pts nose beelds have stopped. Pt confirmed appointment on 05/31/22. Pt also states yes did find a ENT closer to home. Were all questions from office addressed or relayed to the patient from encounter: Yes documented in this encounter [facility] 05-10-2022 Telephone encount er Note Placed call to patient. Was able to speak to patient. All concerns in message have been addressed. [facility] 05-10-2022 Miscellaneous Notes Formattin g of this note might be different from the original. Placed call to patient. Was able to speak to patient. All concerns in message have been addressed. S: Patient called the clinical access center with complaint of nose bleed B: Ongoing. Had nose bleed on Monday that lasted 15-20 . Nose bleed this morning lasting 10 . Patient states she had nose bleed that she had to be hospitalized for and a procedure was done to cauterize vessel. This was in 2019 A: Patient c/o having several nose bleeds. Today nose bleed woke her up out of sleep. Patient states she was instructed to monitor nose bleeds R: Message sent to provider. . Home care advice provided. Patient instructed to call back with worsening symptoms, concerns or questions. Patient verbalized understanding. Reason for Disposition Mild-moderate nosebleed and bleeding has stopped now Protocols used: [id number] documented in this encounter [facility] 05-10-2022 Telephone encount er Note S: Patient called the clinical access center with complaint of nose bleed B: Ongoing. Had nose bleed on Monday that lasted 15-20 . Nose bleed this morning lasting 10 . Patient states she had nose bleed that she had to be hospitalized for and a procedure was done to cauterize vessel. This was in 2019 A: Patient c/o having several nose bleeds. Today nose bleed woke her up out of sleep. Patient states she was instructed to monitor nose bleeds R: Message sent to provider. . Home care advice provided. Patient instructed to call back with worsening symptoms, concerns or questions. Patient verbalized understanding. Reason for Disposition Mild-moderate nosebleed and bleeding has stopped now Protocols used: [id number] [facility] documented in this encounter [employer] Work Phone: Evaluation note* Diagnosis Abdominal pain, unspecified abdominal location documented in this encounter [employer] Work Phone: Evaluation note* Diagnosis Abdominal pain, left lower quadrant- Primary History of irritable bowel syndrome Personal history of other diseases of digestive system documented in this encounter [employer] 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, macular edema presence unspecified (HCC) Essential hypertension Unspecified essential hypertension Hyperlipidemia, unspecified hyperlipidemia type [facility] Diagnosis Lumbar radiculopathy- Primary Thoracic or lumbosacral neuritis or radiculitis, unspecified [facility] Diagnosis Type 2 diabetes mellitus with hyperglycemia, with long-term current use of insulin (CMS/HCC) (HCC)- Primary [facility] Diagnosis Type 2 diabetes mellitus with hyperglycemia, with long-term current use of insulin (CMS/HCC) ([facility])- Primary Acquired hypothyroidism Unspecified hypothyroidism Essential hypertension Unspecified essential hypertension Hyperlipidemia associated with type 2 diabetes mellitus (HCC) [facility] Diagnosis Lumbar radiculopathy- Primary Thoracic or lumbosacral neuritis or radiculitis, unspecified Essential hypertension Unspecified essential hypertension Morbid obesity (HCC) Morbid obesity Type 2 diabetes mellitus with diabetic neuropathy, with long-term current use of insulin (CMS/HCC) ([facility]) [facility] Diagnosis Type 2 diabetes mellitus with hyperglycemia, with long-term current use of insulin (HCC)- Primary Acquired hypothyroidism Unspecified hypothyroidism Essential hypertension Unspecified essential hypertension Hyperlipidemia associated with type 2 diabetes mellitus (HCC) [facility]* Diagnosis Essential hypertension- Primary Unspecified essential hypertension Lumbar radiculopathy Thoracic or lumbosacral neuritis or radiculitis, unspecified Hyperlipidemia, unspecified hyperlipidemia type Type 2 diabetes mellitus with diabetic neuropathy, with long-term current use of insulin (CMS/HCC) ([facility]) [facility] Diagnosis Lumbar radiculopathy Thoracic or lumbosacral neuritis or radiculitis, unspecified [facility] Diagnosis Screening mammogram for breast cancer- Primary [facility]* Diagnosis Lumbar radiculopathy Thoracic or lumbosacral neuritis or radiculitis, unspecified [facility] Diagnosis Lumbar radiculopathy- Primary Thoracic or lumbosacral neuritis or radiculitis, unspecified documented in this encounter [facility] note* Diagnosis Type 2 diabetes mellitus with hyperglycemia, with long-term current use of insulin (HCC) [facility]* Attachments The following attachments cannot be sent through Care Everywhere. * Diverticulitis (Ivorian) * Diverticulosis and Diverticulitis: General Info (Ivorian) documented in this [facility] Work Phone: Hospital Discharge instructions* Instructions* Dell Villatoro PA-C - 03/31/2019 Please follow-up with your primary care provider in 3-5 days for reassessment. Your lab workup and CT scan is reassuring that there is not any acute emergent pathology going on. You are likely suffering from combination of viral GI syndrome and IBS flareup. Newly prescribed medications will help with symptoms while he recovered from your condition, pleasein general increase your oral fluid intake with water, elect by beverages, Pedialyte, Gatorade. Advance oral diet as tolerated. documented in this [facility] [employer] Work Phone: Summary Purpose Family History No Family History Records FoundNo Family History Records FoundNo Family History Records FoundNo Family History Records Found Advance Directives No Advanced Directives Records FoundDocuments on File Type Date Recorded Patient Utilization Supervisor Expl anation Advance Directives and Living Will Power of Waffle Machine Operator Documents on File Type Date Recorded Patient Utilization Supervisor Expl anation ACP-Advance Directive ACP-Power of Waffle Machine Operator Hospital Course Note [facility] Patient Name: HERI TOUSSAINT [facility] Date of : [address] [address] Unit Number: [id number] Discharge Summary Patient Status: ADM IN Attending Doctor: Tanisha Zamora DO Service Date: 07/31/18 1206 Discharge Summary Admit Date Admission Date Time: 07/29/18 1325 Anticipated Discharge Date 07/31/18 Final Dx/Problem List 1. Epistaxis Dr. Garrison consulted, will continue blood pressure control. Patient still has packing in per ENT. 2. HTN (hypertension) Resuming all home meds. 3. HLD (hyperlipidemia) Home statin resumed 4. Hypothyroid Synthroid resumed 5. Insulin dependent diabetes mellitus We will resume her home meds, have NovoLog low-dose sliding scale with ACH as blood sugar checks 6. Leukocytosis Suspect reactive but we will continue Rocephin for now. Was sent home initially on Keflex. 07/28/2018: Has been seen by ENT. Planning for embolization. Bleeding is currently controlled with nasal packing. Mild anemia (more content not included)... Additional Source Comments INFORMATION SOURCE (unrecogn ized section and content) DATE CREATED AUTHOR AUTHOR'S ORGANIZ ATION 10/06/2018 [facility] [place] DATE CREATED AUTHOR AUTHOR'S ORGANIZ ATION 12/19/2021 [facility] DATE CREATED AUTHOR AUTHOR'S ORGANIZ ATION 05/02/2023 [facility] [facility] Reason for Visit (unrecogniz ed section and content) Reason Comments Abdominal Pain LLQ x 3 months, pt h as been diagnosed with IBS and has had diarrhea x 3 months Reason Onset Date Comments Epistaxis (Nose Bleed) 05/10/2022 Reason Comments Follow-up 3 month med check Reason Comments Follow-up Diabetes Reason Onset Date Comments Cancelled Appointment 06/23/2022 Reason Onset Date Comments Release of Information 05/17/2022 Reason Onset Date Comments Med Refill 07/04/2022 Reason Comments Med Refill Reason Comments Diabetes Follow up Reason Onset Date Comments Med Refill 10/19/2022 Reason Onset Date Comments Message 10/26/2022 Reason Comments Diabetes Follow up Reason Comments Follow-up 6 month med check Leg Pain In upper thighs Reason Onset Date Comments Med Refill 02/28/2023 Reason Onset Date Comments Med Refill 03/27/2023 Reason Onset Date Comments Med Refill 04/03/2023 One Pen Left of Rx; Approximately 3-days [place] Cancelled Appointment 04/03/2023 04/06/23, 10:40a F/U Appt; Appt R/S'd to 08/14/23 w/EZRA Santiago Ordered Prescriptions (unrec ognized section and content) Care Teams (unrecognized sec tion and content) Truck Assembler Relationship Specialty Start Date End Date Alfredo Brooks, DO [address] [place] [address] [phone] PCP - General 6/1/19 Truck Assembler Relationship Specialty Start Date End Date Alfredo Brooks, DO [address] [place] [address] PCP - General 07/28/18 Truck Assembler Relationship Specialty Start Date End Date Alfredo Brooks, DO [address] [place] [address] PCP - General 07/28/18 Truck Assembler Relationship Specialty Start Date End Date Alfredo Brooks, DO [address] [place] [address] PCP - General 07/28/18 Truck Assembler Relationship Specialty Start Date End Date Alfredo Brooks, DO [address] [place] [facility] [place] [address] PCP - General 07/28/18 Truck Assembler Relationship Specialty Start Date End Date Alfredo Brooks, DO [address] [place] [facility] [place] [address] PCP - General 07/28/18 Truck Assembler Relationship Specialty Start Date End Date Alfredo Brooks, DO [address] [place] [address] PCP - General 07/28/18 Truck Assembler Relationship Specialty Start Date End Date Alfredo Brooks, DO [address] [place] [address] PCP - General 07/28/18 Truck Assembler Relationship Specialty Start Date End Date Alfredo Brooks, DO [address] [place] [address] PCP - General 07/28/18 Truck Assembler Relationship Specialty Start Date End Date Alfredo Brooks, DO [address] [place] [address] PCP - General 07/28/18 Truck Assembler Relationship Specialty Start Date End Date Alfredo Brooks, [address] [place] [address] PCP - General 07/28/18 Truck Assembler Relationship Specialty Start Date End Date Alfredo Brooks, DO [address] [place] [address] PCP - General 07/28/18 Truck Assembler Relationship Specialty Start Date End Date Alfredo Brooks, DO [address] [place] [phone] PCP - General 07/28/18 Truck Assembler Relationship Specialty Start Date End Date Alfredo Brooks, DO [address] [place] [phone] PCP - General 07/28/18 Truck Assembler Relationship Specialty Start Date End Date Alfredo Brooks, DO [address] [place] [phone] PCP - General 07/28/18 Truck Assembler Relationship Specialty Start Date End Date Alfredo Brooks, DO [address] [place] [phone] PCP - General 07/28/18 Truck Assembler Relationship Specialty Start Date End Date Alfredo Brooks, DO [address] [place] [phone] PCP - General 07/28/18 Truck Assembler Relationship Specialty Start Date End Date Alfredo Brooks, DO [address] [facility] [address] [place] [address] PCP - General 07/28/18 Truck Assembler Relationship Specialty Start Date End Date Alfredo Brooks DO [address] [facility] [address] [place] [address] PCP - General 07/28/18 Truck Assembler Relationship Specialty Start Date End Date Alfredo Boroks DO [address] [facility] [address] [place] [address] [facility] 07/28/18 FOR RECORDS PERTAINING TO PATIENTS WHO ARE OR HAVE BEEN ENROLLED IN A CHEMICAL DEPENDENCY/SUBSTANCEABUSE PROGRAM, SOME INFORMATION MAY BE OMITTED. This clinical summary was aggregated from multiple sources. Caution should be exercised in using it in the provision of clinical care. This summary normalizes information from multiple sources, and as a consequence, information in this document may materially change the coding, format and clinical context of patient data. In addition, data may be omitted in some cases. CLINICAL DECISIONS SHOULD BE BASED ON THE PRIMARY CLINICAL RECORDS. [facility]. provides no warranty or guarantee of the accuracy or completeness of information in this document.
== END 2023-05-02 14:32 | disposition home or self-care (01) ==
PROVIDERS: Emergency Provider Emergency Medicine; PCP Family Medicine; Visit Provider Emergency Medicine
DX: R10.9 Unspecified abdominal pain (principal); E11.9 Type 2 diabetes mellitus without complications; Z79.4 Long term (current) use of insulin; I10 Essential (primary) hypertension; Z79.899 Other long term (current) drug therapy; Z79.84 Long term (current) use of oral hypoglycemic drugs; Z79.82 Long term (current) use of aspirin; Z90.49 Acquired absence of other specified parts of digestive tract; Z90.710 Acquired absence of both cervix and uterus
CPT/HCPCS: 74176; 80048; 81001; 85025; 96360; 96361; 99285; J7030

== ENCOUNTER → 2024-03-27 | Outpatient (CLI) | payer MEDICARE, OTHER, SELFPAY ==
--- NOTE | 2024-03-27 11:38 | RAD_ITS ---
PROCEDURE: LUMBAR SPINE 2 OR 3 VIEWS REASON FOR EXAM: Fall, injury. TECHNIQUE: 2 view(s) of the lumbar spine COMPARISON: None provided. RAD/Lumbar Spine 2 or 3 Views IMPRESSION: Of the visualized lower lumbar spine, at least mild degenerative disc disease i s seen, with DISH also noted. Moderate degree of aortic calcification is noted. A mild degree of gentle lumbar levoscoliosis is present. No spondylolysis is clearly identified, but grade 1 anterolisthesis of L4 upon L5 and also of L5 upon S1 seen. Lower lumbar posterior facet hypertrophy is noted. Degenerative disc disease o f the lumbar spine is seen, with mild disc narrowing at L1-L2, and with moderate disc narrowing at L2-L3, L3-L4, L5-S1 lev els. No acute fracture site is identified. If clinical concern persists, short-term follow-up imaging may be obtained to r ule out a currently occult fracture. Reading Location: [id number]
== END | disposition home or self-care (01) ==
LOC: LAB 11:37 → RAD 11:37
PROVIDERS: PCP Family Medicine; Referring Provider Anesthesiology Pain Medicine; Visit Provider Anesthesiology Pain Medicine
DX: M51.369 Other intervertebral disc degeneration, lumbar region without mention of lumbar back pain or lower extremity pain (principal); M48.16 Ankylosing hyperostosis [Forestier], lumbar region
CPT/HCPCS: 72100